=== PATIENT | female | born 1955 | race Caucasian/White ===

== ENCOUNTER → 2016-09-21 | Outpatient (CLI) | payer BC ==
[~2016-09-21] MED LIST: ALBU1AER9 INH; BIOT1CAP8 PO; CETI10TA84 PO; DEXT30TA7 PO; ESTR1DIS12 TOP; LISI20TA3 PO; SERT1TAB68 PO; SYMIN160 INH
--- NOTE | 2016-09-21 09:31 | DIAGNOSTIC IMAGING REPORT ---
ABDOMINAL ULTRASOUND, RIGHT UPPER QUADRANT HISTORY: Pain. Nausea. UNSPECIFIED DIARRHEA/ABD PAIN. COMPARISON: None. FINDINGS: Pancreas: The pancreas demonstrates a normal echotexture. Liver: Unremarkable. Gallbladder: No gallbladder wall thickening. No gallstones. CBD: 3 mm Right kidney: No hydronephrosis. IMPRESSION: No significant abnormality identified within the within the right upper quadrant. Electronically signed by: Dov Morgan M.D. 09/21/2016 9:29 AM Dictated Date/Time: 09/21/2016 9:28 AM
== END | disposition home or self-care (01) ==
LOC: C.ULTR 09:01
PROVIDERS: ATTEND Family Medicine
DX: R19.7 Diarrhea, unspecified (principal); R10.9 Unspecified abdominal pain

== ENCOUNTER → 2016-10-18 | Outpatient (CLI) | payer BC ==
[~2016-10-18] MED LIST changes: +SINCALIDE INJ 1.4 MCG in SODIUM CHLORIDE 0.9% 100ML 100 ML IV ONE
--- NOTE | 2016-10-18 10:33 | DIAGNOSTIC IMAGING REPORT ---
NUCLEAR MEDICINE HEPATOBILIARY SCAN WITH EJECTION FRACTION HISTORY: EPIGASTRIC PAIN COMPARISON: Abdominal ultrasound 09/21/2016. TECHNIQUE: Immediately following the intravenous administration of 5.2 mCi Tc-99m Choletec, dynamic anterior abdominal imaging pre/post 1.4 mcg of Kinevac was performed. FINDINGS: Uniform hepatic tracer accumulation is shown. Prompt intrahepatic biliary excretion is seen. The gallbladder, common bile duct, and small bowel are all visualized by 43 minutes. This appearance represents the normal sequence of biliary excretion. The gall bladder ejection fraction following administration of Kinevac was 50% (normal >35%). IMPRESSION: 1. No evidence for cystic duct obstruction. 2. Gallbladder ejection fraction calculated to be 50 %. Electronically signed by: Hari Rudd M.D. 10/18/2016 10:31 AM Dictated Date/Time: 10/18/2016 10:31 AM
== END | disposition home or self-care (01) ==
LOC: C.NUCL 07:40
PROVIDERS: ATTEND Family Medicine
DX: R10.13 Epigastric pain (principal)

== ENCOUNTER → 2016-10-24 | Outpatient (CLI) | payer BC ==
[~2016-10-24] MED LIST changes: -SINCALIDE INJ 1.4 MCG in SODIUM CHLORIDE 0.9% 100ML 100 ML IV ONE
--- NOTE | 2016-10-24 12:36 | DIAGNOSTIC IMAGING REPORT ---
NUCLEAR GASTRIC EMPTYING STUDY HISTORY: Epigastric pain COMPARISON: None. TECHNIQUE: Following the oral administration of 1 mCi of technetium 99m sulfur colloid in egg sandwich and 8 ounces of water, static abdominal images are obtained anteriorly and posteriorly at 0 minutes, 1 hour, 2 hour, and 4 hour time intervals. Gastric emptying was calculated utilizing the geometric mean method. FINDINGS: There is approximately 63% activity remaining at the 1 hour time interval (normal is less than 90%), 35% remaining at the 2 hour time interval (normal is less than 60%), and 38% activity remaining at the 4 hour time interval (normal is less than 10%). IMPRESSION: Delayed gastric emptying at the 4 hour time interval as described above. Electronically signed by: Hari Rudd M.D. 10/24/2016 12:35 PM Dictated Date/Time: 10/24/2016 12:34 PM
== END | disposition home or self-care (01) ==
LOC: C.NUCL 07:52
PROVIDERS: ATTEND Family Medicine
DX: R10.13 Epigastric pain (principal)

== ENCOUNTER → 2016-10-30 | Day surgery (SDC) | payer BC ==
[2016-10-10 07:52] VITALS: Ht 166.4 cm; Wt 71.8 kg
[~2016-10-30] VITALS: Ht 166.4 cm; Wt 71.8 kg
[~2016-10-30] MED LIST changes: +500ML BSS 0.3ML EPI 1:1000PF IRRIG ONE; +ACETAMINOPHEN 325 MG TAB PO PRN; +AMVISC PLAIN 0.8ML SYRINGE INT OCU ONE; +AMVISC PLUS 0.8ML SYRINGE INT OCU ONE; +ATROPINE SULFATE 0.1 MG/ML 5ML SYR IV PRN; +BSS FLUSH ONE; +EpHEDrine SULFATE INJ 50 MG/ML AMP IV PRN; +EpINEphrine INJ 1MG/ML AMP 1 MG/ML AMP ONE; +LACTATED RINGER'S 1000ML 500 ML IV SCH; +LIDOCAINE 3.5% OPH GEL PER APPLICATION CHARGE ONE; +LIDOCAINE HCL 1% MPF 2 ML VIAL ONE; +MIDAZOLAM HCL 1 MG/ML 2ML VIAL ONE; +OCUCOAT 1 ML SOLN IO ONE; +POVIDONE-IODINE OP SOLN 30 ML BTL ONE; +PROPARACAINE 0.5% OP SOLN PER DROP CHARGE OPL SCH; +TOBRAMYCIN/DEXAMETHASONE OPH OINT PER APPLN CHARGE ONE
[2016-10-30] MEDS: PHENYLEPHRINE HCL 2.5% OP SOLN PER DROP CHARGE OPL SCH ×2 (11:08→11:16)
[2016-10-30] MEDS: TROPICAMIDE 1% OP SOLN PER DROP CHARGE OPL SCH ×2 (11:09→11:17)
[2016-10-30] MEDS: CYCLOPENTOLATE HCL 1% OP SOLN PER DROP CHARGE OPL SCH ×2 (11:10→11:18)
[2016-10-30] MEDS: KETOROLAC 0.5% OP SOLN PER DROP CHARGE OPL SCH ×2 (11:11→11:19)
[2016-10-30] MEDS: GATIFLOXACIN OP SOLN PER DROP CHARGE OPL SCH ×2 (11:12→11:22)
--- NOTE | 2016-10-30 11:45 | History & Physical Bridge - [place] ---
H&P Re-Evaluation Bridge Note: I have examined the patient, reviewed the History & Physical and in the interval since the performance of the History & Physical I have noted the following changes of clinical significance: Diagnosis: Left Cataract Procedure: Left Cataract Removal with Lens Implant No changes noted
--- NOTE | 2016-10-30 12:27 | Discharge Instructions-SurgCtr ---
Discharge Instructions Date of Service October 30, 2016. Visit Reason for Visit: Cataract Left Eye Discharge Discharge Diagnosis / Problem: cataract Discharge Goals Goal(s): Improve function Activity Recommendations Activity Limitations: per Instructions/Follow-up section Anesthesia . Post Anesthesia Instructions: If you have had General Anesthesia or IV Sedation: * Do not drive today. * Resume driving when surgeon permits. * Do not make important decisions or sign legal documents today. * Call surgeon for: 1. Temperature elevations greater than 101 degrees F. 2. Uncontrollable pain. 3. Excessive bleeding. 4. Persistent nausea and vomiting. 5. Medication intolerance (nausea, vomiting or rash). * For nausea and vomiting use only clear liquids such as: tea, soda, bouillon until nausea subsides, then gradually increase diet as tolerated. * If you have any concerns or questions, call your surgeon's office. If physician is unavailable and it is an emergency, call 911 or go to the nearest emergency room. . Instructions / Follow-Up Instructions / Follow-Up ACTIVITY RECOMMENDATIONS: * No strenuous lifting, jogging or running for 4 days * No swimming or yard work for 1 week. * Limited bending is permitted, such as putting on shoes. RETURN TO SCHOOL/WORK: No work until seen by physician in office. MEDICATIONS: Resume previous medications unless instructed otherwise by your surgeon. This includes eye drops for glaucoma. Zymaxid/Gatifloxacin (baig cap) - one drop every 2 hours until bedtime Nevanac/Ilevro/Prolensa/Ketorolac (harrison cap) - one drop every 4 hours until bedtime Prednisolone (white/pink cap, SHAKE WELL) - one drop every 2 hours until bedtime Starting tomorrow - all 3 drops every 4 hours until seen in the office Optive drops - as needed for discomfort SPECIAL CARE INSTRUCTIONS: * Wear eyeshield when sleeping, for four nights. * You may wear your own glasses or sunglasses while awake. * You may read or watch TV * You may shower and wash your face, but be gentle around the eye and pat dry. * Blurry vision and mild irritation are normal. * Call office if pain is more severe or vision becomes dark at . FOLLOW UP VISIT: Follow-up with Dr Law tomorrow. Diet Recommendations Home Diet: resume previous diet Procedures Procedures Performed: Left Cataract Phacoemulsification With Intraocular Lens Implant; Toric Lens Pending Studies Studies pending at discharge: no Medical Emergencies . Who to Call and When: Medical Emergencies: If at any time you feel your situation is an emergency, please call 911 immediately. . Non-Emergent Contact Non-Emergency issues call your: Bed Setter . . "Provider Documentation" section prepared by Felix Law. .
--- NOTE | 2016-10-30 12:28 | [facility] Operative Report ---
Operative Report Date of Service October 30, 2016. Operative Report 1. PREOPERATIVE DIAGNOSIS: Cataract of the left eye. 2. POSTOPERATIVE DIAGNOSIS: Same. 3. PROCEDURE: Phacoemulsification with intraocular lens implantation of the left eye. SURGEON: Dr. Felix Law. ANESTHESIA: Topical Lidocaine gel, 1% Non- Preserved intracameral Lidocaine, and monitored intravenous sedation. INDICATIONS FOR THE PROCEDURE: The patient is a 61 - year-old female with a history of cataract of the left eye causing significant visual impairment. The details of the proposed procedure were explained to the patient who asked appropriate questions and following discussion of all risks, benefits and alternatives agreed to have the procedure done. Patient had corneal astigmatism and therefore elected to have a toric lens placed. 4. OPERATION AND FINDINGS: DESCRIPTION OF PROCEDURE: After informed consent was obtained, patient was placed in an upright position and the cornea was marked at 101 degrees using the [employer] corneal marking tool. The the patient was brought to the Operating Room at the [facility]. The patient was placed in a supine position and then the left eye was prepped and draped in the usual sterile fashion for intraocular surgery. A drop of topical Lidocaine gel was placed in the operative eye. A wire lid speculum was then placed in the fornices. A corneal paracentesis was then created temporally. The Non-Preserved Lidocaine was then instilled into the anterior chamber. The anterior chamber was then pressurized with viscoelastic. A 2.0 mm clear corneal incision was then created temporally. A cystotome was inserted into the anterior chamber and used to create a tear in the anterior lens capsule. This capsular tear was then used to create a small flap and the flap was dragged in a counterclockwise direction in order to create a continuous curvilinear capsulorrhexis. Hydrodissection was accomplished with balanced salt solution. Phacoemulsification of the lens nucleus was then performed in a standard divide- and-conquer technique. The phaco time was 18 seconds with an average power of 8 %. The remaining cortical material was removed using irrigation aspiration. The capsular bag was then filled with viscoelastic. A Henry [id number] +19.0 diopters lens was then loaded into the injector and injected into the capsular bag. The lens was aligned with the previously made corneal mohr. The remaining viscoelastic was removed with the irrigation aspiration handpiece. The wound was hydrated and then checked and found to be watertight. The intraocular pressure was checked and found to be adequate. The wire lid speculum was removed and the patient's face was cleaned and dried. TobraDex ointment was placed in the inferior fornix. The patient was discharged to the Recovery Room having tolerated the procedure well. There were no complications. The patient will be seen tomorrow in the office for follow-up. I attest to the content of the Intraoperative Record and any orders documented therein. Any exceptions are noted below.
[2016-10-30 12:44] VITALS: BP 139/80; PULSE 67; O2SAT 96
--- NOTE | 2016-10-30 12:54 | Anesthesia Progress Nt - [facility] ---
Anesthesia Post Op Note Date & Time October 30, 2016 at 12:54 Vital Signs Pain Intensity: 0 Vital Signs Past 12 Hours Date Time Temp Pulse Resp B/P Pulse Ox O2 Delivery O2 Flow Rate FiO2 10/30/16 12:44 67 16 139/80 96 Room Air 10/30/16 12:29 36.6 71 12 131/84 99 Room Air 10/30/16 10:58 36.5 58 16 130/82 99 Room Air Notes Mental Status: alert / awake / arousable, participated in evaluation Pt Amnestic to Procedure: Yes Nausea / Vomiting: adequately controlled Pain: adequately controlled Airway Patency, RR, SpO2: stable & adequate BP & HR: stable & adequate Hydration State: stable & adequate Anesthetic Complications: no major complications apparent
== END | disposition home or self-care (01) ==
LOC: X.SURG 10:32
PROVIDERS: ATTEND Ophthalmology
DX: H26.9 Unspecified cataract (principal); J45.40 Moderate persistent asthma, uncomplicated; I10 Essential (primary) hypertension; R19.7 Diarrhea, unspecified; F32.9 Major depressive disorder, single episode, unspecified; J30.2 Other seasonal allergic rhinitis; M19.90 Unspecified osteoarthritis, unspecified site; K21.9 Gastro-esophageal reflux disease without esophagitis; Z82.49 Family history of ischemic heart disease and other diseases of the circulatory system; Z82.3 Family history of stroke; Z83.3 Family history of diabetes mellitus; Z90.710 Acquired absence of both cervix and uterus; Z90.89 Acquired absence of other organs

== ENCOUNTER 2016-11-09 07:51 | Day surgery (SDC) | payer BC ==
[2016-11-07 14:44] LABS: BASO ABS # 0.09 K/uL (0-0.2); COMPLETE YES; EOS % 2.7 %; HEMATOCRIT 41.2 % (37-47); IG% 0.2 %; LYMPH % 33.8 %; LYMPH ABS # 3.18 K/uL (1.2-3.4); MEAN CELL VOLUME 88.6 fL (80-100); MEAN CORPUSCULAR HEMOGLOBIN 28.8 pg (25-34); MEAN CORPUSCULAR HGB CONC 32.5 g/dl (32-36); MEAN PLATELET VOLUME 9.6 fL (7.4-10.4); MONO % 7.4 %; NEUT % 54.9 %; PLATELET COUNT 424 K/uL (130-400); RED BLOOD COUNT 4.65 M/uL (4.2-5.4); WHITE BLOOD COUNT 9.42 K/uL (4.8-10.8)
[2016-11-07 15:06] LABS: BLOOD UREA NITROGEN 12 mg/dl (7-18); BUN/CREATININE RATIO 15.8 (10-20); CARBON DIOXIDE 28 mmol/L (21-32); CHLORIDE 106 mmol/L (98-107); CREATININE 0.78 mg/dl (0.60-1.20); GLUCOSE 84 mg/dl (70-99); POTASSIUM 3.9 mmol/L (3.5-5.1); SODIUM 141 mmol/L (136-145)
[2016-11-07 15:34] VITALS: Ht 166.4 cm; Wt 70.0 kg
[~2016-11-09] VITALS: Ht 166.4 cm; Wt 70.0 kg
[~2016-11-09 07:51] MED LIST changes: -500ML BSS 0.3ML EPI 1:1000PF IRRIG ONE; -ACETAMINOPHEN 325 MG TAB PO PRN; -AMVISC PLAIN 0.8ML SYRINGE INT OCU ONE; -AMVISC PLUS 0.8ML SYRINGE INT OCU ONE; -ATROPINE SULFATE 0.1 MG/ML 5ML SYR IV PRN; -BSS FLUSH ONE; -EpHEDrine SULFATE INJ 50 MG/ML AMP IV PRN; -EpINEphrine INJ 1MG/ML AMP 1 MG/ML AMP ONE; +LACTATED RINGER'S 1000ML 1,000 ML IV SCH; -LACTATED RINGER'S 1000ML 500 ML IV SCH; -LIDOCAINE 3.5% OPH GEL PER APPLICATION CHARGE ONE; -LIDOCAINE HCL 1% MPF 2 ML VIAL ONE; -MIDAZOLAM HCL 1 MG/ML 2ML VIAL ONE; -OCUCOAT 1 ML SOLN IO ONE; -POVIDONE-IODINE OP SOLN 30 ML BTL ONE; -PROPARACAINE 0.5% OP SOLN PER DROP CHARGE OPL SCH; -TOBRAMYCIN/DEXAMETHASONE OPH OINT PER APPLN CHARGE ONE
[2016-11-09 08:14] VITALS: BP 133/79; PULSE 66; TEMP 36.6; O2SAT 97
--- NOTE | 2016-11-09 09:36 | Endo History and Physical ---
History & Physical Date of Service: Nov 09, 2016. Chief Complaint: Referring Physician: Dr Mckenzie History of Present Illness epigastric pain, submucosal gastric nodule Past Medical History Asthma, Reflux, Gynecological Problems, Depression Past Surgical History Hx Cardiac Surgery: No Hx Abdominal Surgery: Yes (SANTIAGO BSO, APPY, TUBAL LIGATION AND FATTY TISSUE TUMOR REMOVAL) Hx Post-Op Nausea and Vomiting: No Hx Cancer Surgery: No Hx Thoracic Surgery: No Hx Orthopedic: Yes (LEFT HAND ARTHROSCOPY, TRIGGER THUMB, LEFT CARPAL TUNNEL) Hx Urinary Tract Surgery: No Social History Smoking Status: Never Smoker Hx Substance Use: No Hx Alcohol Use: Yes (OCCASIONAL) Allergies Coded Allergies: BEE STING (Verified Allergy, Severe, ANAPHYLAXIS, 11/09/16) Penicillins (Verified Allergy, Severe, ANAPHYLAXIS, 11/09/16) Sulfa Antibiotics (Verified Allergy, Intermediate, HIVES AND RASH, 11/09/16) Adhesives (Verified Allergy, Unknown, blisters, 11/09/16) Mold (Blue) Cheese (Verified Allergy, Unknown, STREAKS, 11/09/16) Uncoded Allergies: MUSHROOMS (Adverse Reaction, Intermediate, nausea and vomiting, 11/09/16) Current Medications Reported Home Medications Medications Dose Route/Sig Max Daily Dose Days Date Category Biotin 1 Mg Cap 1 Cap PO HS 10/10/16 Reported Mucinex Dm (Dextromethorphan-Guaifenesin) 1 Tab Tab 1 Tab PO Q4H PRN 10/06/15 Reported Minivelle (Estradiol) 0.05 Mg/24 Hr Dis 1 Patch TOP 2XWK 10/06/15 Reported Zyrtec (Cetirizine HCl) 10 Mg Tab 10 Mg PO HS 10/06/15 Reported Prinivil (Lisinopril) 20 Mg Tab 20 Mg PO HS 10/06/15 Reported Proair Hfa (Albuterol Sulfate) 108 Mcg/ Aer 1-2 Puffs INH PRN PRN 03/30/12 Reported Symbicort 160/4.5 Inhaler (Budesonide/Formoterol Fumarate) 120 Puffs/ Aero 1 Puffs INH BID 03/30/12 Reported Zoloft (Sertraline Hcl) 100 Mg Tab 100 Mg PO QPM 03/30/12 Reported Vital Signs Weight (Kilograms): 70 Height (Feet): 5 Height (Inches): 5.5 Date Time Temp Pulse Resp B/P (MAP) Pulse Ox O2 Delivery O2 Flow Rate FiO2 11/09/16 08:14 36.6 66 18 133/79 (97) 97 Room Air Physical Exam AAOx3 Nls1s2 Lungs CTA Abd soft NT/ND + BS - CCE Assessment and Plan EUS with possible FNA
[2016-11-09] MEDS ORDERED: MIDAZOLAM HCL 1 MG/ML 2ML VIAL ONE (10:11)
[2016-11-09] MEDS ORDERED: FENTANYL CITRATE INJ 50 MCG/1 ML 2 ML VIAL ONE (10:11)
[2016-11-09] MEDS ORDERED: ONDANSETRON INJ 2 MG/ML 2 ML VIAL ONE (10:20)
[2016-11-09] MEDS ORDERED: PROPOFOL IV EMULSION 10 MG/ML 20 ML VIAL IV ONE ×2 (10:20→11:19)
[2016-11-09] MEDS ORDERED: LARYING-O-JET KIT (LTA) ONE ×2 (10:20)
[2016-11-09] MEDS ORDERED: LIDOCAINE HCL 2% 2 ML VIAL (20MG/ML) ONE (10:20)
[2016-11-09] MEDS ORDERED: DEXAMETHASONE SOD INJ 4 MG/ML VIAL ONE (10:20)
[2016-11-09] MEDS ORDERED: PHENYLEPHRINE HCL INJ 10 MG/ML VIAL ONE (10:32)
--- NOTE | 2016-11-09 11:59 | GI REPORT ---
Procedure Date: 11/09/2016 9:39 AM Procedure: Upper EUS Indications: Gastric deformity on endoscopy/Subepithelial tumor versus extrinsic compression, Epigastric abdominal pain, one year, no wt loss; not nocturnal; strong FH of pancreas CA with father, 2 uncles and cousin Medicines: General Anesthesia Complications: radial and linear EUS scopes used to perform study. The antral nodule has features consistent with a pancreatic rest including possible small ductal structure. the lesion appear to arise in layer 4 however a portion may arise from layer three. This was not well visualized with the linear scope and therefore FNA was not attempted. Multiple mucosal biopsies taken directly from the rest were obtained. Estimated Blood Loss: Estimated blood loss was minimal. Procedure: Pre-Anesthesia Assessment: - Prior to the procedure, a History and Physical was performed, and patient medications and allergies were reviewed. The patient's tolerance of previous anesthesia was also reviewed. The risks and benefits of the procedure and the sedation options and risks were discussed with the patient. All questions were answered, and informed consent was obtained. Prior Anticoagulants: The patient has taken no previous anticoagulant or antiplatelet agents. ASA Grade Assessment: II - A patient with mild systemic disease. After reviewing the risks and benefits, the patient was deemed in satisfactory condition to undergo the procedure. After obtaining informed consent, the endoscope was passed under direct vision. Throughout the procedure, the patient's blood pressure, pulse, and oxygen saturations were monitored continuously. The Endosonoscope was introduced through the mouth, and advanced to the second part of duodenum. The upper EUS was accomplished without difficulty. The patient tolerated the procedure well. Findings: Endoscopic Finding : The examined esophagus was normal. A single 15 mm submucosal papule (nodule) with no bleeding and no stigmata of recent bleeding was found on the greater curvature of the stomach. This was biopsied with a cold forceps for histology. Verification of patient identification for the specimen was done using the patient's name and medical record number. Localized mild inflammation characterized by congestion (edema) and erythema was found in the gastric antrum. Biopsies were taken with a cold forceps for histology. Biopsies were taken with a cold forceps for Helicobacter pylori testing. The examined duodenum was normal. Endosonographic Finding : The esophagus, stomach, duodenum and adjacent structures were visualized endosonographically. There was no sign of significant endosonographic abnormality in the esophagus. No pathologic lymphadenopathy was identified. An oval intramural (subepithelial) lesion was found in the antrum of the stomach. The lesion was hypoechoic and heterogenous. Sonographically, the lesion appeared to originate from the submucosa (Layer 3) and muscularis propria (Layer 4). The lesion measured 5 mm (in maximum thickness). The outer endosonographic borders were poorly defined. Endosonographic images of the stomach were unremarkable. No pathologic lymphadenopathy was identified. There was no sign of significant endosonographic abnormality in the examined duodenum. No pathologic lymphadenopathy was identified. There was no sign of significant endosonographic abnormality in the ampulla. No masses were identified. There was no sign of significant endosonographic abnormality in the common bile duct, in the common hepatic duct, in the cystic duct and in the gallbladder. The maximum diameter of the ducts were 3 mm. An unremarkable gallbladder, no pathologic lymphadenopathy and no stones were identified. There was no sign of significant endosonographic abnormality in the liver. Homogeneous parenchyma, no focal pathology and no masses were identified. There was no sign of significant endosonographic abnormality in the main pancreatic duct, in the ventral anlage of the pancreas and in the entire pancreas. The pancreatic duct measured up to 1 mm in diameter. No pathologic lymphadenopathy, no masses, no cysts, no calcifications, the pancreatic duct was thin in caliber. Radial scope in 10:08- removed 10:43 Linear scope in 10:53- removed 11:17 Impression: - Normal esophagus. - A single submucosal papule (nodule) found in the stomach. Biopsied. - Gastritis. Biopsied. - Normal examined duodenum. - There was no sign of significant pathology in the esophagus. - An intramural (subepithelial) lesion was found in the antrum of the stomach. The lesion appeared to originate from within the submucosa (Layer 3) and muscularis propria (Layer 4). - Endosonographic images of the stomach were unremarkable. - There was no sign of significant pathology in the examined duodenum. - There was no sign of significant pathology in the ampulla. - There was no sign of significant pathology in the common bile duct, in the common hepatic duct, in the cystic duct and in the gallbladder. - There was no evidence of significant pathology in the liver. - There was no sign of significant pathology in the main pancreatic duct, in the ventral anlage of the pancreas and in the entire pancreas. Recommendation: - Discharge patient to home (ambulatory). - Resume regular diet. - Continue present medications. - Await path results. - Return to referring physician as previously scheduled. - Return to GI clinic as previously schedule with Dr Mckenzie. Source of abdominal pain unclear. GB workup if not recently performed. May also consider CT scan if not recently performed. The pancreas appears normal ultrasonographic. MD Moshe Prasad MD 11/09/2016 11:59:25 AM This report has been signed electronically. Note Initiated On: 11/09/2016 9:39 AM I attest to the content of the Intraoperative Record and orders documented therein, exceptions below
--- NOTE | 2016-11-09 12:03 | Discharge Instructions ---
Endoscopy Patient Instructions Date / Procedure(s) Performed Nov 09, 2016. Other Allergy Information Coded Allergies: BEE STING (Verified Allergy, Severe, ANAPHYLAXIS, 11/09/16) Penicillins (Verified Allergy, Severe, ANAPHYLAXIS, 11/09/16) Midazolam (Unverified Allergy, Intermediate, HEADACHE, 11/09/16) Sulfa Antibiotics (Verified Allergy, Intermediate, HIVES AND RASH, 11/09/16) Adhesives (Verified Allergy, Unknown, blisters, 11/09/16) Mold (Blue) Cheese (Verified Allergy, Unknown, STREAKS, 11/09/16) Uncoded Allergies: MUSHROOMS (Adverse Reaction, Intermediate, nausea and vomiting, 11/09/16) Discharge Date / Findings Nov 09, 2016. 1) EUS c/w pancreatic rest- mucosal bx taken 2-mild gastritis- biopsied 3)- pancreas appears normal Medication Instructions Restart Stopped Medication(s): Reported Home Medications Medications Dose Route/Sig Max Daily Dose Days Date Category Biotin 1 Mg Cap 1 Cap PO HS 10/10/16 Reported Mucinex Dm (Dextromethorphan-Guaifenesin) 1 Tab Tab 1 Tab PO Q4H PRN 10/06/15 Reported Minivelle (Estradiol) 0.05 Mg/24 Hr Dis 1 Patch TOP 2XWK 10/06/15 Reported Zyrtec (Cetirizine HCl) 10 Mg Tab 10 Mg PO HS 10/06/15 Reported Prinivil (Lisinopril) 20 Mg Tab 20 Mg PO HS 10/06/15 Reported Proair Hfa (Albuterol Sulfate) 108 Mcg/ Aer 1-2 Puffs INH PRN PRN 03/30/12 Reported Symbicort 160/4.5 Inhaler (Budesonide/Formoterol Fumarate) 120 Puffs/ Aero 1 Puffs INH BID 03/30/12 Reported Zoloft (Sertraline Hcl) 100 Mg Tab 100 Mg PO QPM 03/30/12 Reported Reported Home Medications Medications Dose Route/Sig Max Daily Dose Days Date Category Biotin 1 Mg Cap 1 Cap PO HS 10/10/16 Reported Mucinex Dm (Dextromethorphan-Guaifenesin) 1 Tab Tab 1 Tab PO Q4H PRN 10/06/15 Reported Minivelle (Estradiol) 0.05 Mg/24 Hr Dis 1 Patch TOP 2XWK 10/06/15 Reported Zyrtec (Cetirizine HCl) 10 Mg Tab 10 Mg PO HS 10/06/15 Reported Prinivil (Lisinopril) 20 Mg Tab 20 Mg PO HS 10/06/15 Reported Proair Hfa (Albuterol Sulfate) 108 Mcg/ Aer 1-2 Puffs INH PRN PRN 03/30/12 Reported Symbicort 160/4.5 Inhaler (Budesonide/Formoterol Fumarate) 120 Puffs/ Aero 1 Puffs INH BID 03/30/12 Reported Zoloft (Sertraline Hcl) 100 Mg Tab 100 Mg PO QPM 03/30/12 Reported Provider Instructions Activity Restrictions - No exercising or heavy lifting for 24 hours. - Do not drink alcohol the day of the procedure. - Do not drive a car or operate machinery until the day after the procedure. - Do not make any important decisions or sign important papers in 24 hours after the procedure. Following Day: - Return to full activity which may include returning to work/school. Diet Start your diet with liquids and light foods (jello, soup, juice, toast). Then eat your usual diet if not nauseated. Treatment For Common After Affects For mild abdominal pain, bloating, or excessive gas: - Rest - Eat lightly - Lie on right side Follow-Up Information Follow-up with as scheduled Anesthesia Information What You Should Know You have had a procedure that required some medicine to reduce anxiety and discomfort. This treatment is called moderate sedation. After receiving the treatment, you may be sleepy, but you will be able to breathe on your own. The effects of the treatment may last for several hours. Follow these instructions along with Activity/Diet recommendations noted above: * Do NOT do anything where dizziness or clumsiness would be dangerous. * Rest quietly at home today, then you can be up and about tomorrow. * Have a responsible person stay with you the rest of today. * You may have had an I.V. today. If so, you may take the dressing off later today. Recommendations Call your doctor if: * Trouble breathing * Continuous vomiting for more than 24 hours * Temperature above 101 degrees * Severe abdominal pain or bloating * Pain not relieved by pain medicine ordered * There is increased drainage or redness from any incision * A large amount of rectal bleeding greater than 2-3 tablespoons. (If you had a polyp/s removed or have hemorrhoids, a small amount of blood - from the rectum is to be expected.) * You have any unanswered questions or concerns. IN THE EVENT OF A SERIOUS EMERGENCY, GO TO THE NEAREST EMERGENCY ROOM Your discharge instructions were prepared by provider Moshe Melgar. Patient Instructions Signature Page Elena Larsen Patient (or Guardian) Signature/Date: I have read and understand the instructions given to me by my caregivers. Caregiver/RN/Doctor Signature/Date: The above-named patient and/or guardian has received patient instructions on this date. + Original Patient Signature Page (only) stays with chart. Please make copy for patient.
--- NOTE | 2016-11-09 12:36 | Anesthesiology Progress Note ---
Anesthesia Post Op Note Date & Time Nov 09, 2016 at 12:36 Vital Signs Pain Intensity: 0 Vital Signs Past 12 Hours Date Time Temp Pulse Resp B/P (MAP) Pulse Ox O2 Delivery O2 Flow Rate FiO2 11/09/16 12:32 127/76 11/09/16 12:29 83 15 93 11/09/16 12:29 83 15 11/09/16 12:27 123/72 11/09/16 12:24 80 17 93 11/09/16 12:24 80 17 11/09/16 12:22 132/77 11/09/16 12:19 79 13 11/09/16 12:19 79 13 94 11/09/16 12:17 120/74 11/09/16 12:14 87 17 11/09/16 12:14 87 17 93 11/09/16 12:13 89 20 93 11/09/16 12:13 89 20 11/09/16 12:12 115/82 11/09/16 12:08 83 14 11/09/16 12:08 83 14 95 11/09/16 12:07 138/80 11/09/16 12:03 85 14 11/09/16 12:03 84 14 95 11/09/16 12:02 36.8 11/09/16 12:00 86 16 95 11/09/16 12:00 86 14 11/09/16 11:58 127/67 11/09/16 11:55 87 14 94 11/09/16 11:55 88 14 11/09/16 11:53 127/66 11/09/16 11:50 94 21 96 11/09/16 11:50 95 21 11/09/16 11:47 142/113 11/09/16 11:45 92 15 100 11/09/16 11:45 93 15 11/09/16 11:42 123/75 11/09/16 11:40 Room Air 11/09/16 11:40 96 10 11/09/16 11:40 95 10 100 11/09/16 11:39 122/76 11/09/16 11:30 36.8 99 16 127/76 100 Mask 10 11/09/16 08:14 36.6 66 18 133/79 (97) 97 Room Air Notes Mental Status: alert / awake / arousable, participated in evaluation Pt Amnestic to Procedure: Yes Nausea / Vomiting: adequately controlled Pain: adequately controlled Airway Patency, RR, SpO2: stable & adequate BP & HR: stable & adequate Hydration State: stable & adequate Anesthetic Complications: no major complications apparent
[2016-11-09 12:38] VITALS: BP 121/67; PULSE 86; TEMP 37.4; O2SAT 96
[2016-11-09] MEDS ORDERED: EpHEDrine SULFATE INJ 50 MG/ML AMP IV PRN (12:45)
[2016-11-09] MEDS ORDERED: ATROPINE SULFATE 0.1 MG/ML 5ML SYR IV PRN (12:45)
[2016-11-09 13:10] VITALS: BP 124/70; PULSE 78; O2SAT 96
[2016-11-09 13:45] VITALS: BP 126/69; PULSE 85; TEMP 36.8; O2SAT 95
== END 2016-11-09 13:59 | disposition home or self-care (01) ==
LOC: C.ACU 07:51
PROVIDERS: ATTEND Internal Medicine Gastroenterology
DX: R10.13 Epigastric pain (principal); K31.89 Other diseases of stomach and duodenum; K29.71 Gastritis, unspecified, with bleeding; F32.9 Major depressive disorder, single episode, unspecified; J45.909 Unspecified asthma, uncomplicated

== ENCOUNTER → 2016-11-20 | Day surgery (SDC) | payer BC ==
[2016-11-07 16:03] VITALS: Ht 166.4 cm; Wt 70.0 kg
[~2016-11-20] VITALS: Ht 166.4 cm; Wt 70.0 kg
[~2016-11-20] MED LIST changes: +500ML BSS 0.3ML EPI 1:1000PF IRRIG ONE; +ACETAMINOPHEN 325 MG TAB PO PRN; +AMVISC PLUS 0.8ML SYRINGE INT OCU ONE; +ATROPINE SULFATE 0.1 MG/ML 5ML SYR IV PRN; +BSS FLUSH ONE; +EpHEDrine SULFATE INJ 50 MG/ML AMP IV PRN; +EpINEphrine INJ 1MG/ML AMP 1 MG/ML AMP ONE; +FENTANYL CITRATE INJ 50 MCG/1 ML 2 ML VIAL IV PRN; +FLUMAZENIL 0.1 MG/1 ML 10 ML VIAL IV PRN; +HYDROmorphone INJ 2 MG/ML SYR/VIAL IV PRN; +LABETALOL HCL IV 5 MG/ML 20ML IV PRN; -LACTATED RINGER'S 1000ML 1,000 ML IV SCH; +LACTATED RINGER'S 1000ML 500 ML IV SCH; +LIDOCAINE 3.5% OPH GEL PER APPLICATION CHARGE ONE; +LIDOCAINE HCL 1% MPF 2 ML VIAL ONE; +MEPERIDINE HCL 25 MG/ML CARP IV PRN; +MIDAZOLAM HCL 1 MG/ML 2ML VIAL ONE; +NALOXONE HCL 0.4 MG/1 ML VIAL/CARP IV PRN; +OCUCOAT 1 ML SOLN IO ONE; +ONDANSETRON INJ 2 MG/ML 2 ML VIAL IV PRN; +PHENYLEPHRINE 100MCG/ML 5ML SYR IV PRN; +POVIDONE-IODINE OP SOLN 30 ML BTL ONE; +PROPARACAINE 0.5% OP SOLN PER DROP CHARGE OPR SCH; +TOBRAMYCIN/DEXAMETHASONE OPH OINT PER APPLN CHARGE ONE
[2016-11-20] MEDS: PHENYLEPHRINE HCL 2.5% OP SOLN PER DROP CHARGE OPR SCH ×2 (06:36→06:42)
[2016-11-20] MEDS: TROPICAMIDE 1% OP SOLN PER DROP CHARGE OPR SCH ×2 (06:37→06:42)
[2016-11-20] MEDS: CYCLOPENTOLATE HCL 1% OP SOLN PER DROP CHARGE OPR SCH ×2 (06:38→06:43)
[2016-11-20] MEDS: KETOROLAC 0.5% OP SOLN PER DROP CHARGE OPR SCH ×2 (06:39→06:44)
[2016-11-20] MEDS: GATIFLOXACIN OP SOLN PER DROP CHARGE OPR SCH ×2 (06:40→06:50)
--- NOTE | 2016-11-20 07:00 | History & Physical Bridge - [place] ---
H&P Re-Evaluation Bridge Note: I have examined the patient, reviewed the History & Physical and in the interval since the performance of the History & Physical I have noted the following changes of clinical significance: Diagnosis: Right Cataract Procedure: Right Cataract Removal with Lens Implant No changes noted
--- NOTE | 2016-11-20 07:26 | Discharge Instructions-SurgCtr ---
Discharge Instructions Date of Service Nov 20, 2016. Visit Reason for Visit: Right Cataract Discharge Discharge Diagnosis / Problem: cataract Discharge Goals Goal(s): Improve function Activity Recommendations Activity Limitations: per Instructions/Follow-up section Anesthesia . Post Anesthesia Instructions: If you have had General Anesthesia or IV Sedation: * Do not drive today. * Resume driving when surgeon permits. * Do not make important decisions or sign legal documents today. * Call surgeon for: 1. Temperature elevations greater than 101 degrees F. 2. Uncontrollable pain. 3. Excessive bleeding. 4. Persistent nausea and vomiting. 5. Medication intolerance (nausea, vomiting or rash). * For nausea and vomiting use only clear liquids such as: tea, soda, bouillon until nausea subsides, then gradually increase diet as tolerated. * If you have any concerns or questions, call your surgeon's office. If physician is unavailable and it is an emergency, call 911 or go to the nearest emergency room. . Instructions / Follow-Up Instructions / Follow-Up ACTIVITY RECOMMENDATIONS: * No strenuous lifting, jogging or running for 4 days * No swimming or yard work for 1 week. * Limited bending is permitted, such as putting on shoes. RETURN TO SCHOOL/WORK: No work until seen by physician in office. MEDICATIONS: Resume previous medications unless instructed otherwise by your surgeon. This includes eye drops for glaucoma. Zymaxid/Gatifloxacin (baig cap) - one drop every 2 hours until bedtime Nevanac/Ilevro/Prolensa/Ketorolac (harrison cap) - one drop every 4 hours until bedtime Prednisolone (white/pink cap, SHAKE WELL) - one drop every 2 hours until bedtime Starting tomorrow - all 3 drops every 4 hours until seen in the office Optive drops - as needed for discomfort SPECIAL CARE INSTRUCTIONS: * Wear eyeshield when sleeping, for four nights. * You may wear your own glasses or sunglasses while awake. * You may read or watch TV * You may shower and wash your face, but be gentle around the eye and pat dry. * Blurry vision and mild irritation are normal. * Call office if pain is more severe or vision becomes dark at . FOLLOW UP VISIT: Follow-up with Dr Law tomorrow. Diet Recommendations Home Diet: resume previous diet Procedures Procedures Performed: Right Cataract Phacoemulsification With Intraocular Lens Implant Pending Studies Studies pending at discharge: no Medical Emergencies . Who to Call and When: Medical Emergencies: If at any time you feel your situation is an emergency, please call 911 immediately. . Non-Emergent Contact Non-Emergency issues call your: Public Employment Mediator . . "Provider Documentation" section prepared by Felix Law. .
[2016-11-20 07:27] VITALS: TEMP 36.5
--- NOTE | 2016-11-20 07:27 | [facility] Operative Report ---
Operative Report Date of Service Nov 20, 2016. Operative Report 1. PREOPERATIVE DIAGNOSIS: Cataract of the right eye. 2. POSTOPERATIVE DIAGNOSIS: Same. 3. PROCEDURE: Phacoemulsification with intraocular lens implantation of the right eye. SURGEON: Dr. Felix Law. ANESTHESIA: Topical Lidocaine gel, 1% Non- Preserved intracameral Lidocaine, and monitored intravenous sedation. INDICATIONS FOR THE PROCEDURE: The patient is a 61 - year-old female with a history of cataract of the right eye causing significant visual impairment. The details of the proposed procedure were explained to the patient who asked appropriate questions and following discussion of all risks, benefits and alternatives agreed to have the procedure done. 4. OPERATION AND FINDINGS: DESCRIPTION OF PROCEDURE: After informed consent was obtained, the patient was brought to the Operating Room at the [facility]. The patient was placed in a supine position and then the right eye was prepped and draped in the usual sterile fashion for intraocular surgery. A drop of topical Lidocaine gel was placed in the operative eye. A wire lid speculum was then placed in the fornices. A corneal paracentesis was then created temporally. The Non-Preserved Lidocaine was then instilled into the anterior chamber. The anterior chamber was then pressurized with viscoelastic. A 2.0 mm clear corneal incision was then created temporally. A cystotome was inserted into the anterior chamber and used to create a tear in the anterior lens capsule. This capsular tear was then used to create a small flap and the flap was dragged in a counterclockwise direction in order to create a continuous curvilinear capsulorrhexis. Hydrodissection was accomplished with balanced salt solution. Phacoemulsification of the lens nucleus was then performed in a standard [id number]-[id number] technique. The phaco time was 18 seconds with an average power of 8 %. The remaining cortical material was removed using irrigation aspiration. The capsular bag was then filled with viscoelastic. A Henry [id number] +17.0 diopters lens was then loaded into the injector and injected into the capsular bag. The remaining viscoelastic was removed with the irrigation aspiration handpiece. The wound was hydrated and then checked and found to be watertight. The intraocular pressure was checked and found to be adequate. The wire lid speculum was removed and the patient's face was cleaned and dried. TobraDex ointment was placed in the inferior fornix. The patient was discharged to the Recovery Room having tolerated the procedure well. There were no complications. The patient will be seen tomorrow in the office for follow-up. I attest to the content of the Intraoperative Record and any orders documented therein. Any exceptions are noted below.
--- NOTE | 2016-11-20 07:40 | Anesthesia Progress Nt - [facility] ---
Anesthesia Post Op Note Date & Time Nov 20, 2016 at 07:40 Vital Signs Pain Intensity: 0 Vital Signs Past 12 Hours Date Time Temp Pulse Resp B/P (MAP) Pulse Ox O2 Delivery O2 Flow Rate FiO2 11/20/16 07:27 36.5 71 16 124/81 (95) 97 Room Air 11/20/16 06:26 37.1 73 16 122/81 (95) 96 Room Air Notes Mental Status: alert / awake / arousable, participated in evaluation Pt Amnestic to Procedure: Yes Nausea / Vomiting: adequately controlled Pain: adequately controlled Airway Patency, RR, SpO2: stable & adequate BP & HR: stable & adequate Hydration State: stable & adequate Anesthetic Complications: no major complications apparent
[2016-11-20 07:55] VITALS: BP 130/77; PULSE 63; O2SAT 97
== END | disposition home or self-care (01) ==
LOC: X.SURG 06:14
PROVIDERS: ATTEND Ophthalmology
DX: H26.9 Unspecified cataract (principal); I10 Essential (primary) hypertension; J45.909 Unspecified asthma, uncomplicated; M19.90 Unspecified osteoarthritis, unspecified site; Z68.25 Body mass index [BMI] 25.0-25.9, adult; Z88.0 Allergy status to penicillin; Z88.2 Allergy status to sulfonamides; Z98.890 Other specified postprocedural states

== ENCOUNTER → 2017-02-04 | Outpatient (CLI) | payer BC ==
[~2017-02-04] MED LIST changes: -500ML BSS 0.3ML EPI 1:1000PF IRRIG ONE; -ACETAMINOPHEN 325 MG TAB PO PRN; -AMVISC PLUS 0.8ML SYRINGE INT OCU ONE; -ATROPINE SULFATE 0.1 MG/ML 5ML SYR IV PRN; -BSS FLUSH ONE; -EpHEDrine SULFATE INJ 50 MG/ML AMP IV PRN; -EpINEphrine INJ 1MG/ML AMP 1 MG/ML AMP ONE; -FENTANYL CITRATE INJ 50 MCG/1 ML 2 ML VIAL IV PRN; -FLUMAZENIL 0.1 MG/1 ML 10 ML VIAL IV PRN; -HYDROmorphone INJ 2 MG/ML SYR/VIAL IV PRN; -LABETALOL HCL IV 5 MG/ML 20ML IV PRN; -LACTATED RINGER'S 1000ML 500 ML IV SCH; -LIDOCAINE 3.5% OPH GEL PER APPLICATION CHARGE ONE; -LIDOCAINE HCL 1% MPF 2 ML VIAL ONE; -MEPERIDINE HCL 25 MG/ML CARP IV PRN; -MIDAZOLAM HCL 1 MG/ML 2ML VIAL ONE; -NALOXONE HCL 0.4 MG/1 ML VIAL/CARP IV PRN; -OCUCOAT 1 ML SOLN IO ONE; -ONDANSETRON INJ 2 MG/ML 2 ML VIAL IV PRN; -PHENYLEPHRINE 100MCG/ML 5ML SYR IV PRN; -POVIDONE-IODINE OP SOLN 30 ML BTL ONE; -PROPARACAINE 0.5% OP SOLN PER DROP CHARGE OPR SCH; -TOBRAMYCIN/DEXAMETHASONE OPH OINT PER APPLN CHARGE ONE
--- NOTE | 2017-02-04 15:35 | MAMMOGRAPHY REPORT ---
BILATERAL DIGITAL SCREENING MAMMOGRAM WITH CAD: 02/04/2017 CLINICAL HISTORY: Routine screening. Patient has no complaints. TECHNIQUE: Bilateral CC and MLO views of the breasts with and without implant displacement views were obtained. Current study was also evaluated with a Computer Aided Detection (CAD) system. COMPARISON: Comparison is made to exams dated: 03/14/2015 mammogram, 01/26/2015 mammogram, 12/29/2014 m ammogram, 03/09/2014 mammogram - [facility], and 05/16/2010 mammogram. BREAST COMPOSITION: There are scattered areas of fibroglandular density in both breasts. FINDINGS: Bilateral subpectoral silicone implants are stable compared to prior mammograms. There is a stable intramammary lymph node in the right upper outer quadrant. A benign rim calcification in th e right breast. No new suspicious mass, architectural distortion or cluster of microcalcifications i s seen. IMPRESSION: ACR BI-RADS CATEGORY 1: NEGATIVE There is no mammographic evidence of malignancy. A 1 year screening mammogram is recommended. The pa tient will receive written notification of the results. Approximately 10% of breast cancers are not detected with mammography. A negative mammographic report should not delay biopsy if a clinically suggestive mass is present. Neli Park M.D. ay/:02/04/2017 15:15:39 School Bus Operator: Anisha GAMBLE(Jose)(Garima)([place]), [facility] letter sent: Normal 1/2 BI-RADS Code: ACR BI-RADS Category 1: Negative
== END | disposition home or self-care (01) ==
LOC: C.MAMM 14:26
PROVIDERS: ATTEND Obstetrics & Gynecology
DX: Z12.31 Encounter for screening mammogram for malignant neoplasm of breast (principal)

== ENCOUNTER 2021-01-08 10:36 | Inpatient (IN) ==
[2021-01-08] MEDS ORDERED: ACETAMINOPHEN 500 MG TAB PO STA (11:17)
[2021-01-08] MEDS ORDERED: ONDANSETRON INJ 2 MG/ML 2 ML VIAL IV STA (11:17)
[2021-01-08] MEDS ORDERED: KETOROLAC TROMETHAMINE 15 MG/ML VIAL IV STA (11:17)
[2021-01-08 11:22] LABS: Basophils # (auto) 0.01 K/uL (0-0.2); Basophils % (auto) 0.1 %; Hematocrit (blood only) 35.6 % (37-47); Hemoglobin 12.3 g/dL (12.0-16.0); Immature Granulocytes # (auto) 0.02 K/uL (0.00-0.02); Immature Granulocytes % (auto) 0.1 %; Lymphocytes # (auto) 0.56 K/uL (1.2-3.4); Lymphocytes % (auto) 3.9 %; Mean Corpuscular Hemoglobin 30.3 pg (25-34); Mean Corpuscular Hgb Conc 34.6 g/dL (32-36); Mean Corpuscular Volume 87.7 fL (80-100); Mean Platelet Volume 9.3 fL (7.4-10.4); Monocytes % (auto) 2.8 %; Neutrophils # (auto) 13.23 K/uL (1.4-6.5); Neutrophils % (auto) 93.1 %; Platelet Count 265 K/uL (130-400); RDW Coefficient of Variation 13.3 % (11.5-14.5); Red Blood Count 4.06 M/uL (4.2-5.4); White Blood Count 14.22 K/uL (4.8-10.8)
--- NOTE | 2021-01-08 11:23 | Emergency Department Note ---
Impression & Plan Pneumonia, Flu-like symptoms, Acute dehydration, Acute hyponatremia ED Provider Note NAME: DANE COWAN AGE: 65 SEX: F : 1955 ARRIVES VIA: Walk-In INFORMANT: [Patient] ED PROVIDER(S): [Je Gorman MD] CHIEF COMPLAINT: Illness HISTORY OF PRESENT ILLNESS: The patient is a 65-year-old female presents with about 4 days of symptoms. She has had severe facial pain bilaterally. She feels that she is congested and may have a sinus infection. Her ears have drained some fluid. Her teeth hurt. She has felt lightheaded, hot and cold, nauseated. She has vomited. She felt chills and a fever. She has had sweats. Recently, she has noticed some increased cough and some mild to moderate central chest discomfort. She feels mildly short of breath. The patient has had Covid and she is vaccinated against COVID-19. She denies any tick bites. The patient denies urinary complaints. She admits to some loose stool but no diarrhea. There is no abdominal pain. REVIEW OF SYSTEMS: See HPI for pertinent positives and negatives. A total of ten systems were reviewed and were otherwise negative. PMHx/PSHx: See Below SOCIAL HISTORY: See Below. PHYSICAL EXAM: GENERAL: Patient is in no acute distress. HEENT: No acute trauma, normocephalic atraumatic, mucous membranes moist, no nasal congestion, no scleral icterus. No throat erythema or exudate. NECK: No stridor, no adenopathy, no meningismus, trachea is midline. LUNGS: Clear to auscultation bilaterally, no wheeze, no rhonchi, breath sounds equal. HEART: Mildly tachycardic, regular rhythm, no murmurs. ABDOMEN: Soft, nontender, bowel sounds positive, no hernias, no peritonitis. EXTREMITIES: No cyanosis or edema, full range of motion of all the joints without pain or difficulty, no signs for acute trauma. NEUROLOGIC: Oriented x 3, no acute motor or sensory deficits, no focal weakness. SKIN: No rash, no jaundice, no diaphoresis. DIFFERENTIAL DIAGNOSIS: Sepsis, UTI, pneumonia, metabolic abnormality, electrolyte abnormalities, cardiac sources, COVID-19, anaplasmosis, Lyme disease, cellulitis, UTI, bacteremia, intracerebral event, toxicologic etiology, neurologic event, as well as other pathologies. EMERGENCY DEPARTMENT COURSE/PROCEDURES: ECG: Indication was chest pain. The ECG shows a normal sinus rhythm with a rate of 97. There is some very subtle ST depression in the lateral leads. There is no ST elevation, no PVCs. The QTc is 416. Compared to an ECG from 07 Nov 2016, the rate has increased, the ST changes appear similar. Continuous Cardiac Monitoring: An order was placed for continuous cardiac monitoring. The monitor shows a rate of 100 with normal sinus rhythm. MEDICAL DECISION MAKING: There is a moderate leukocytosis which would be consistent with infection. No anemia. There is a normal platelet count. Sodium was low at 129. No kidney failure. Lactic acid level was not elevated making severe sepsis less likely. Magnesium was low at 1.7. No worrisome liver enzyme elevation. The patient appeared to be in a euthyroid state. ECG showed a sinus rhythm, no acute ischemia. Cardiac enzyme testing x1 is not consistent with acute cardiac injur y. Urinalysis showed some dehydration and contamination. Lyme disease testing returned negative. Anaplasmosis testing is pending. Covid testing returned negative. Chest film does show a bilateral lower lung pneumonia. The patient presents with flulike symptoms. She appears to have pneumonia by work-up. She is dehydrated, she has been vomiting, she is hyponatremic. She has a low magnesium. Given her findings and her history, I do think a hospital stay is warranted. Patient was given IV saline for hydration. She received IV Zofran and IV magnesium. She was given oral magnesium. She received IV Toradol, IV clindamycin and oral doxycycline. She received oral Tylenol. I did speak with the patient and case therapist. The on-call hospitalist has been consulted. Patient is currently resting comfortably. 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 Beliefs That Will Affect Care: None Current Living Situation: Alone Feels Safe at Home: Yes Safety Concerns: Feels Safe At This Time Assistive Devices: None Allergies Allergies Allergy/AdvReac Type Severity Reaction Status Date / Time bee venom protein (honey bee) Allergy Severe ANAPHYLAXIS Verified 01/08/21 13:15 Penicillins Allergy Severe ANAPHYLAXIS Verified 01/08/21 13:15 midazolam Allergy Intermediate HEADACHE Unverified 01/08/21 13:15 Sulfa (Sulfonamide Allergy Intermediate HIVES AND Verified 01/08/21 13:15 Antibiotics) RASH adhesive Allergy Unknown blisters Verified 01/08/21 13:15 cheese Allergy Unknown STREAKS Verified 01/08/21 13:15 MUSHROOMS AdvReac Intermediate nausea and Uncoded 01/08/21 13:15 vomiting Home Meds Home Medications Medication Instructions Recorded Confirmed albuterol sulfate 90 mcg/actuation 1 - 2 puff INHALATION Q4H PRN #0 03/30/12 01/08/21 aerosol inhaler (ProAir HFA) sertraline 100 mg tablet 100 mg PO BID #0 tab 03/30/12 01/08/21 cetirizine 10 mg tablet (Zyrtec) 10 mg PO PM #0 tab 10/06/15 01/08/21 lisinopril 20 mg tablet 20 mg PO HS #0 tab 10/06/15 01/08/21 acetaminophen 500 mg capsule 1,000 mg PO Q6H PRN 01/08/21 01/08/21 biotin 5,000 mcg sublingual tablet 5,000 mcg SUBLINGUAL HS 01/08/21 01/08/21 buspirone 5 mg tablet 5 - 10 mg PO AMPM 01/08/21 01/08/21 cholecalciferol (vitamin D3) 25 25 mcg PO QAM 01/08/21 01/08/21 mcg (1,000 unit) tablet (Vitamin D3) Results & Data (ED) Vital Signs Vital Signs - 24 hr 01/08/21 10:45 01/08/21 11:10 01/08/21 12:00 Temperature 37.2 C Temperature Source Temporal Artery Scan Pulse Rate 107 H Pulse Rate [Apical] 100 H Pulse Rate from SpO2 Sensor Pulse Rhythm [Apical] Regular Respiratory Rate 18 16 Respiratory Effort / Characteristics Non-Labored Spontaneous Non-Labored Respiratory Depth Normal Normal Respiratory Pattern Regular Blood Pressure 149/88 H Blood Pressure [Right Arm] 115/89 Blood Pressure Mean 108 Blood Pressure Mean [Right Arm] 97 Blood Pressure Position Sitting Pulse Oximetry 96 97 95 Oxygen Delivery Method Room Air Room Air Room Air Sepsis Recent Fever Within 48 Hours No Sepsis New/Unexplained Change in Mental Status N/A Sepsis Action Taken by Nursing No Action Required 01/08/21 13:00 01/08/21 13:30 Temperature Temperature Source Pulse Rate 82 84 Pulse Rate [Apical] 86 Pulse Rate from SpO2 Sensor 82 82 Pulse Rhythm [Apical] Regular Respiratory Rate 14 16 Respiratory Effort / Characteristics Non-Labored Respiratory Depth Normal Respiratory Pattern Blood Pressure 120/76 125/70 Blood Pressure [Right Arm] 120/76 Blood Pressure Mean 90 88 Blood Pressure Mean [Right Arm] 90 Blood Pressure Position Pulse Oximetry 95 95 Oxygen Delivery Method Room Air Sepsis Recent Fever Within 48 Hours Sepsis New/Unexplained Change in Mental Status Sepsis Action Taken by [facility] Medications Current Medication List: was personally reviewed by me Laboratory Data Attestation: I reviewed the patient's lab results. Result diagrams: 01/08/21 11:12 01/08/21 11:12 Lab Results 01/08/21 01/08/21 01/08/21 Range/Units 11:12 11:12 11:12 WBC 14.22 H (4.8-10.8) K/uL RBC 4.06 L (4.2-5.4) M/uL Hgb 12.3 (12.0-16.0) g/dL Hct 35.6 L (37-47) % MCV 87.7 (80-100) fL MCH 30.3 (25-34) pg MCHC 34.6 (32-36) g/dL RDW Std Deviation 43.0 (36.4-46.3) fL RDW Coeff of Ori 13.3 (11.5-14.5) % Plt Count 265 (130-400) K/uL MPV 9.3 (7.4-10.4) fL Immature Gran % (Auto) 0.1 % Neut % (Auto) 93.1 % Lymph % (Auto) 3.9 % [place] % (Auto) 2.8 % Eos % (Auto) 0.0 % Baso % (Auto) 0.1 % Neut # (Auto) 13.23 H (1.4-6.5) K/uL Lymph # (Auto) 0.56 L (1.2-3.4) K/uL [place] # (Auto) 0.40 (0.11-0.59) K/uL Eos # (Auto) 0.00 (0-0.5) K/uL Baso # (Auto) 0.01 (0-0.2) K/uL Immature Gran # (Auto) 0.02 (0.00-0.02) K/uL Sodium 129 L (136-145) mmol/L Potassium 3.7 (3.5-5.1) mmol/L Chloride 99 (98-107) mmol/L Carbon Dioxide 23 (21-32) mmol/L Anion Gap 8.0 (3-11) BUN 10 (7-18) mg/dl Creatinine 0.79 (0.6-1.2) mg/dl Est Cr Clr Drug Dosing 63.9 ml/min Est GFR ( Amer) 91.0 ml/min Est GFR (Non-Af Amer) 78.6 ml/min BUN/Creatinine Ratio 12.5 (10-20) Glucose 130 H (70-99) mg/dl Osmolality (280-300) mOsm/kg Lactate (0.4-2.0) mmol/L Calcium 8.7 (8.5-10.1) mg/dl Magnesium 1.7 L (1.8-2.4) mg/dl Total Bilirubin 0.4 (0.2-1) mg/dl AST 37 (15-37) U/L ALT 37 (12-78) U/L Alkaline Phosphatase 85 (45-117) U/L Troponin I < 0.015 (0-0.045) ng/ml Total Protein 7.3 (6.4-8.2) gm/dl Albumin 3.1 L (3.4-5.0) gm/dl Globulin 4.2 H (2.5-4.0) gm/dl Albumin/Globulin Ratio 0.7 L (0.9-2) Procalcitonin (0-0.5) ng/ml TSH 0.674 (0.300-4.500) uIu/ml Urine Color Urine Appearance (Clear) Urine pH (4.5-7.5) Ur Specific [place] (1.000-1.030) Urine Protein (Negative) Urine Glucose (UA) (Negative) Urine Ketones (Negative) Urine Blood (Negative) Urine Nitrite (Negative) Urine Bilirubin (Negative) Urine Urobilinogen (Negative) Ur Leukocyte Esterase (Negative) Urine WBC (Auto) (0-5) /hpf Urine RBC (Auto) (0-4) /hpf U Hyaline Cast (Auto) (0-5) /lpf U Epithel Cells (Auto) (0-5) /lpf Urine Bacteria (Auto) (Negative) Lyme Disease IgG Ab Negative (Negative) Lyme Disease IgM Ab Negative (Negative) COVID-19 Eval Order SARS-CoV-2 (PCR) (Negative) 01/08/21 01/08/21 01/08/21 Range/Units 11:12 11:12 11:45 WBC (4.8-10.8) K/uL RBC (4.2-5.4) M/uL Hgb (12.0-16.0) g/dL Hct (37-47) % MCV (80-100) fL MCH (25-34) pg MCHC (32-36) g/dL RDW Std Deviation (36.4-46.3) fL RDW Coeff of Ori (11.5-14.5) % Plt Count (130-400) K/uL MPV (7.4-10.4) fL Immature Gran % (Auto) % Neut % (Auto) % Lymph % (Auto) % [place] % (Auto) % Eos % (Auto) % Baso % (Auto) % Neut # (Auto) (1.4-6.5) K/uL Lymph # (Auto) (1.2-3.4) K/uL [place] # (Auto) (0.11-0.59) K/uL Eos # (Auto) (0-0.5) K/uL Baso # (Auto) (0-0.2) K/uL Immature Gran # (Auto) (0.00-0.02) K/uL Sodium (136-145) mmol/L Potassium (3.5-5.1) mmol/L Chloride (98-107) mmol/L Carbon Dioxide (21-32) mmol/L Anion Gap (3-11) BUN (7-18) mg/dl Creatinine (0.6-1.2) mg/dl Est Cr Clr Drug Dosing ml/min Est GFR ( Amer) ml/min Est GFR (Non-Af Amer) ml/min BUN/Creatinine Ratio (10-20) Glucose (70-99) mg/dl Osmolality 273 L (280-300) mOsm/kg Lactate (0.4-2.0) mmol/L Calcium (8.5-10.1) mg/dl Magnesium (1.8-2.4) mg/dl Total Bilirubin (0.2-1) mg/dl AST (15-37) U/L ALT (12-78) U/L Alkaline Phosphatase (45-117) U/L Troponin I (0-0.045) ng/ml Total Protein (6.4-8.2) gm/dl Albumin (3.4-5.0) gm/dl Globulin (2.5-4.0) gm/dl Albumin/Globulin Ratio (0.9-2) Procalcitonin 1.15 H (0-0.5) ng/ml TSH (0.300-4.500) uIu/ml Urine Color Dark Yellow Urine Appearance Clear (Clear) Urine pH 5.5 (4.5-7.5) Ur Specific [place] 1.030 (1.000-1.030) Urine Protein 2+ H (Negative) Urine Glucose (UA) Negative (Negative) Urine Ketones 2+ H (Negative) Urine Blood 3+ H (Negative) Urine Nitrite Negative (Negative) Urine Bilirubin 1+ H (Negative) Urine Urobilinogen Negative (Negative) Ur Leukocyte Esterase Trace H (Negative) Urine WBC (Auto) 1-5 (0-5) /hpf Urine RBC (Auto) 10-30 H (0-4) /hpf U Hyaline Cast (Auto) 5-10 H (0-5) /lpf U Epithel Cells (Auto) >30 H (0-5) /lpf Urine Bacteria (Auto) Negative (Negative) Lyme Disease IgG Ab (Negative) Lyme Disease IgM Ab (Negative) COVID-19 Eval Order SARS-CoV-2 (PCR) (Negative) 01/08/21 01/08/21 01/08/21 Range/Units 11:45 11:45 12:18 WBC (4.8-10.8) K/uL RBC (4.2-5.4) M/uL Hgb (12.0-16.0) g/dL Hct (37-47) % MCV (80-100) fL MCH (25-34) pg MCHC (32-36) g/dL RDW Std Deviation (36.4-46.3) fL RDW Coeff of Ori (11.5-14.5) % Plt Count (130-400) K/uL MPV (7.4-10.4) fL Immature Gran % (Auto) % Neut % (Auto) % Lymph % (Auto) % [place] % (Auto) % Eos % (Auto) % Baso % (Auto) % Neut # (Auto) (1.4-6.5) K/uL Lymph # (Auto) (1.2-3.4) K/uL [place] # (Auto) (0.11-0.59) K/uL Eos # (Auto) (0-0.5) K/uL Baso # (Auto) (0-0.2) K/uL Immature Gran # (Auto) (0.00-0.02) K/uL Sodium (136-145) mmol/L Potassium (3.5-5.1) mmol/L Chloride (98-107) mmol/L Carbon Dioxide (21-32) mmol/L Anion Gap (3-11) BUN (7-18) mg/dl Creatinine (0.6-1.2) mg/dl Est Cr Clr Drug Dosing ml/min Est GFR ( Amer) ml/min Est GFR (Non-Af Amer) ml/min BUN/Creatinine Ratio (10-20) Glucose (70-99) mg/dl Osmolality (280-300) mOsm/kg Lactate 1.3 (0.4-2.0) mmol/L Calcium (8.5-10.1) mg/dl Magnesium (1.8-2.4) mg/dl Total Bilirubin (0.2-1) mg/dl AST (15-37) U/L ALT (12-78) U/L Alkaline Phosphatase (45-117) U/L Troponin I (0-0.045) ng/ml Total Protein (6.4-8.2) gm/dl Albumin (3.4-5.0) gm/dl Globulin (2.5-4.0) gm/dl Albumin/Globulin Ratio (0.9-2) Procalcitonin (0-0.5) ng/ml TSH (0.300-4.500) uIu/ml Urine Color Urine Appearance (Clear) Urine pH (4.5-7.5) Ur Specific [place] (1.000-1.030) Urine Protein (Negative) Urine Glucose (UA) (Negative) Urine Ketones (Negative) Urine Blood (Negative) Urine Nitrite (Negative) Urine Bilirubin (Negative) Urine Urobilinogen (Negative) Ur Leukocyte Esterase (Negative) Urine WBC (Auto) (0-5) /hpf Urine RBC (Auto) (0-4) /hpf U Hyaline Cast (Auto) (0-5) /lpf U Epithel Cells (Auto) (0-5) /lpf Urine Bacteria (Auto) (Negative) Lyme Disease IgG Ab (Negative) Lyme Disease IgM Ab (Negative) COVID-19 Eval Order Covid19 at [facility] SARS-CoV-2 (PCR) NEGATIVE (Negative) Administered Medications Lactated Ringer's (Lr) 1,000 mls @ 80 mls/hr IV .[id number] ONE Stop: 01/09/21 05:06 Last Admin: 01/08/21 17:41 Dose: 80 mls/hr Documented by: [id number] Magnesium Sulfate/Dextrose (Magnesium Sulfate / D5w) 1 gm in 100 mls @ 50 mls/hr IV Q2H RADHA Stop: 01/08/21 20:59 Last Admin: 01/08/21 18:04 Dose: 50 mls/hr Documented by: [id number] Discontinued Medications Acetaminophen (Acetaminophen 500 Mg Tab) 1,000 mg PO NOW STA Stop: 01/08/21 11:18 Last Admin: 01/08/21 11:42 Dose: 1,000 mg Documented by: [id number] Doxycycline Hyclate (Doxycycline Hyclate 100 Mg Cap) 100 mg PO NOW STA Stop: 01/08/21 12:42 Last Admin: 01/08/21 13:49 Dose: Not Given Documented by: [id number] Sodium Chloride (Nss 1000ml) 1,000 mls @ 999 mls/hr IV .Q1H1M RADHA Stop: 01/08/21 12:30 Last Infusion: 01/08/21 13:10 Dose: 0 mls/hr Documented by: [id number] Admin: 01/08/21 11:42 Dose: 999 mls/hr Documented by: [id number] Sodium Chloride (Nss 1000ml) 500 mls @ 999 mls/hr IV .Q31M ONE Stop: 01/08/21 12:36 Last Infusion: 01/08/21 13:50 Dose: 0 mls/hr Documented by: [id number] Admin: 01/08/21 12:56 Dose: 999 mls/hr Documented by: [id number] Clindamycin Phosphate 900 mg/ (Dextrose) 56 mls @ 112 mls/hr IV ONE ONE Stop: 01/08/21 13:10 Last Infusion: 01/08/21 14:32 Dose: 0 mls/hr Documented by: [id number] Admin: 01/08/21 13:47 Dose: 112 mls/hr Documented by: [id number] Doxycycline Hyclate 100 mg/ (Dextrose) 110 mls @ 50 mls/hr IV NOW STA Stop: 01/08/21 15:59 Last Infusion: 01/08/21 17:17 Dose: 0 mls/hr Documented by: [id number] Admin: 01/08/21 14:26 Dose: 50 mls/hr Documented by: [id number] Ketorolac Tromethamine (Ketorolac Tromethamine 15 Mg/Ml Vial) 15 mg IV NOW STA Stop: 01/08/21 11:18 Last Admin: 01/08/21 11:43 Dose: 15 mg Documented by: [id number] Magnesium Oxide (Magnesium Oxide 400 Mg Tab) 400 mg PO NOW STA Stop: 01/08/21 12:07 Last Admin: 01/08/21 12:56 Dose: 400 mg Documented by: [id number] Ondansetron HCl (Ondansetron Inj 2 Mg/Ml 2 Ml Vial) 4 mg IV NOW STA Stop: 01/08/21 11:18 Last Admin: 01/08/21 11:43 Dose: 4 mg Documented by: [id number] Imaging Data Radiologist's Impression: Chest X-Ray 01/08/21 11:17 XR chest 1V portable HISTORY: 65 years-old Female weakness acute weakness COMPARISON: CT abdomen and pelvis 06/16/2018 TECHNIQUE: Portable AP view of the chest FINDINGS: Cardiomediastinal and hilar silhouettes are within normal limits. 5 mm nodular opacity of the right midlung. No pneumothorax, pleural effusion or overt pulmonary edema.. Ill-defined right greater than left bibasilar opacities. IMPRESSION: 1. Ill-defined right greater than left bibasilar opacities are suspicious for pneumonia or aspiration pneumonitis. 2. Possible 5 mm nodule of the right midlung. ACT 112: Negative or not required by law. The above report was generated using voice recognition software. It may contain grammatical, syntax or spelling errors. Electronically signed by: Alberto Martinez M.D. 01/08/2021 12:[address] 01/08/21 13:39 CT sinus wo con HISTORY: 65 years-old Female sinus pain, dizziness, off balance acute dizziness with sinus pressure COMPARISON: None TECHNIQUE: Multiple axial CT images of the paranasal sinuses were obtained without the use of IV contrast. A dose lowering technique was used consistent with the principals of ALARA. FINDINGS: No acute intracranial abnormality identified. Prior bilateral lens repair. Soft tissues are unremarkable. No acute calvarial fracture. The mastoid air cells and middle ear cavities are clear. No acute facial bone fracture. Degenerative changes are noted within the imaged cervical spine. Degenerative changes of the temporal mandibular joints. Clear sphenoid sinuses. No significant mucosal thickening of the maxillary or frontal sinuses. There is minimal mucosal thickening of the residual ethmoid air cells. Prior partial ethmoidectomy with bilateral maxillary antrostomy. The middle nasal turbinates are surgically absent. The bilateral maxillary sinus outflow tracts, frontoethmoidal and sphenoethmoidal recesses are patent. No large Con cell. Normal francie amaya. Nasal septum is midline. IMPRESSION: 1. Postoperative changes of the paranasal sinuses as above. 2. Minimal mucosal thickening of the residual ethmoid air cells. 3. Clear sinus outflow tracts. ACT 112: Negative or not required by law. The above report was generated using voice recognition software. It may contain grammatical, syntax or spelling errors. Electronically signed by: Alberto Martinez M.D. 01/08/2021 2:42 PM Discharge Plan Visit Data Chief Complaint: Illness Stated Complaint: TIGHTNESS IN CHEST, VOMITING, FEVER, DIZZY ED Provider: Je Gorman Discharge Problem: Pneumonia, Flu-like symptoms, Acute dehydration, Acute hyponatremia Patient Disposition: Admitted As Inpatient Condition: Fair Discharge Instructions Interventions: ED Discharge Assessment Last Done: 01/08/21 16:25
[2021-01-08] MEDS ORDERED: SODIUM CHLORIDE 0.9% 1000ML 1,000 ML IV SCH (11:30)
[2021-01-08 11:40] LABS: Alanine Aminotransferase 37 U/L (12-78); Albumin Level 3.1 gm/dl (3.4-5.0); Aspartate Aminotransferase 37 U/L (15-37); BUN Creatinine Ratio 12.5 (10-20); Blood Urea Nitrogen 10 mg/dl (7-18); Calcium 8.7 mg/dl (8.5-10.1); Carbon Dioxide 23 mmol/L (21-32); Chloride 99 mmol/L (98-107); Creatinine Clr Calc Pharmacy 63.9 ml/min; Est GFR (Non-African American) 78.6 ml/min; Glucose 130 mg/dl (70-99); Magnesium 1.7 mg/dl (1.8-2.4); Potassium 3.7 mmol/L (3.5-5.1); Sodium 129 mmol/L (136-145)
[2021-01-08 11:51] LABS: Albumin Globulin Ratio 0.7 (0.9-2); Alkaline Phosphatase 85 U/L (45-117); Bilirubin,Total 0.4 mg/dl (0.2-1); Globulin 4.2 gm/dl (2.5-4.0); Thyroid Stimulating Hormone 0.674 uIu/ml (0.300-4.500); Total Protein 7.3 gm/dl (6.4-8.2); Troponin I < 0.015 ng/ml (0-0.045)
[2021-01-08 11:57] LABS: Appearance Urine Clear (Clear); Bacteria Urine Automated Negative (Negative); Blood Urine 3+ (Negative); Color Urine Dark Yellow; Epithelial Cell Urine Auto >30 /lpf (0-5); Glucose Urine UA Negative (Negative); Ketones Urine 2+ (Negative); Leukocyte Esterase Urine Trace (Negative); Nitrite Urine Negative (Negative); Protein Urine 2+ (Negative); Urobilinogen Urine Negative (Negative); pH Urine 5.5 (4.5-7.5)
[2021-01-08] MEDS ORDERED: MAGNESIUM OXIDE 400 MG TAB PO STA (12:06)
[2021-01-08] MEDS ORDERED: SODIUM CHLORIDE 0.9% 1000ML 500 ML IV ONE (12:06)
[2021-01-08 12:09] LABS: Lyme Ab IgG w/WB Rflx Negative (Negative); Lyme Ab IgM w/WB Rflx Negative (Negative)
--- NOTE | 2021-01-08 12:18 | Electrocardiogram Report ---
Test Reason : Blood Pressure : / mmHG Vent. Rate : 097 BPM Atrial Rate : 097 BPM P-R Int : 120 ms QRS Dur : 066 ms QT Int : 328 ms P-R-T Axes : 082 021 064 degrees QTc Int : 416 ms Poor data quality, interpretation may be adversely affected Normal sinus rhythm Normal ECG When compared with ECG of 07-NOV-2016 13:23, Vent. rate has increased BY 36 BPM Otherwise no significant change Confirmed by Chau Morgan ([id number]) on 01/08/2021 12:18:12 PM Referred By: Confirmed By:Chau Morgan
--- NOTE | 2021-01-08 12:21 | XRay Report ---
XR chest 1V portable HISTORY: 65 years-old Female weakness acute weakness COMPARISON: CT abdomen and pelvis 06/16/2018 TECHNIQUE: Portable AP view of the chest FINDINGS: Cardiomediastinal and hilar silhouettes are within normal limits. 5 mm nodular opacity of the right m idlung. No pneumothorax, pleural effusion or overt pulmonary edema.. Ill-defined right greater than l eft bibasilar opacities. IMPRESSION: 1. Ill-defined right greater than left bibasilar opacities are suspicious for pneumonia or aspiration pneumonitis. 2. Possible 5 mm nodule of the right midlung. ACT 112: Negative or not required by law. The above report was generated using voice recognition software. It may contain grammatical, syntax o r spelling errors. Electronically signed by: Alberto Martinez M.D. 01/08/2021 12:20 PM
[2021-01-08] MEDS ORDERED: DOXYCYCLINE HYCLATE 100 MG CAP PO STA (12:41)
[2021-01-08] MEDS ORDERED: CLINDAMYCIN 900 MG in DEXTROSE 5% 50 ML IV ONE (12:41)
[2021-01-08 12:53] LABS: Bilirubin Urine 1+ (Negative)
[2021-01-08] MEDS ORDERED: DOXYCYCLINE HYCLATE 100 MG in DEXTROSE 5% 100 ML IV STA (13:48)
[2021-01-08] MEDS ORDERED: ONDANSETRON INJ 2 MG/ML 2 ML VIAL IV PRN (13:52)
--- NOTE | 2021-01-08 14:04 | History & Physical Report ---
Date of Service January 08, 2021 Assessment & Plan (1) Sinus infection: Plan: Pain with palpation to sinuses as well as swelling around frontal and maxillary sinuses - Continue with Doxycycline- IV with patient nausea to decrease change of esophagitis - Received 1 dose of Clindamycin in the EMD- broaden back out of clinical picute changes - CT scan of sinus - Likely causing PND and Nausea (2) Leukocytosis: Plan: As above - Anaplasmosis pending - Continue with Doxycycline - Follow CBC - normal lactate - PCT pending (3) Hyponatremia: Plan: Likely related to decrease in salt intake and free water intake over past 72 hours - Urine NA pending - Urine and serum OSMO pending - Spec grav 1.030 (4) Abnormal chest xray: Plan: Ill-defined right greater than left bibasilar opacities are suspicious for pneumonia or aspiration pneumonitis. Possible 5 mm nodule of the right midlung. - Concern for pneumonia/aspiration- Continue doxycycline - Not on oxygen therapy, no cough, no sputum production - Follow clinically - For her lung nodule- CT scan as outpatient and follow up with PCP History of Present Illness Primary Care Provider: Vidhya Gillespie, 65 YOF with past medical history of: HTN, depression, allergies, asthma; The patient has a surgical history of sinus surgery, SANTIAGO BSO, with fatty tissue removal. Patient presents to the EMD today for concerns of; fevers, chills, headache, ear pain, and feeling off balance, and chest tightness. Patient started to not feeling well on evening with onset of head ache. The headache was more like a pressure that was noted bilaterally above and below her eyes. This was associated with pain in her teeth as well as worsening with head movement and her ears feeling full. She endorses feeling chills and being sweaty as well as pain along the side of her neck. Patient also endorses waking up in the morning with sore throat that was scratchy in nature. Endorses having some fluid come out of ear the other day after using q-tip secondary to fullness. She also has some nausea with loss of appetite and has not been eating much food. She normally drinks 6-8 bottles of water a day, but will mix in some propel, but due to her stomach being upset she has just been drinking water, which likely explains her sodium level. She does spend allot of time outside gardening but denies any tick bites. In the EMD the patient had, routine blood work donoe, blood cultures, urine culture a CXR done with some concern of lower bilateral lobe opacity. She was given IV Clindamycin and changed Doxycycline to IV secondary to her nausea and vomiting. Patient will be observed overnight for control of nausea and vomiting, asses gerry sinuses with CT scan and follow her anaplasmosis smear and WBC count and biomarkers. Patient also has anaphylaxis to PCN. Patient has received her COVID vaccine and her COVID test is NEGATIVE on admission. Allergies Allergy/AdvReac Type Severity Reaction Status Date / Time bee venom protein (honey bee) Allergy Severe ANAPHYLAXIS Verified 01/08/21 13:15 Penicillins Allergy Severe ANAPHYLAXIS Verified 01/08/21 13:15 midazolam Allergy Intermediate HEADACHE Unverified 01/08/21 13:15 Sulfa (Sulfonamide Allergy Intermediate HIVES AND Verified 01/08/21 13:15 Antibiotics) RASH adhesive Allergy Unknown blisters Verified 01/08/21 13:15 cheese Allergy Unknown STREAKS Verified 01/08/21 13:15 MUSHROOMS AdvReac Intermediate nausea and Uncoded 01/08/21 13:15 vomiting Home Medications Medication Instructions Recorded Confirmed Type albuterol sulfate 90 mcg/actuation 1 - 2 puff INHALATION Q4H PRN #0 03/30/12 01/08/21 History aerosol inhaler (ProAir HFA) sertraline 100 mg tablet 100 mg PO BID #0 tab 03/30/12 01/08/21 History cetirizine 10 mg tablet (Zyrtec) 10 mg PO PM #0 tab 10/06/15 01/08/21 History lisinopril 20 mg tablet 20 mg PO HS #0 tab 10/06/15 01/08/21 History acetaminophen 500 mg capsule 1,000 mg PO Q6H PRN 01/08/21 01/08/21 History biotin 5,000 mcg sublingual tablet 5,000 mcg SUBLINGUAL HS 01/08/21 01/08/21 History buspirone 5 mg tablet 5 - 10 mg PO AMPM 01/08/21 01/08/21 History cholecalciferol (vitamin D3) 25 25 mcg PO QAM 01/08/21 01/08/21 History mcg (1,000 unit) tablet (Vitamin D3) Past Med/Surg History Medical History Asthma Depression GERD (gastroesophageal reflux disease) HTN (hypertension) Surgical History (Updated 01/08/21 @ 14:11 by JEAN-PAUL Anderson) S/P SANTIAGO-BSO Social History Smoking Status: Never smoker Preferred Language: Cameroonian Feels Safe at Home: Yes Review of Systems Review of Systems: REVIEW OF SYSTEMS: Constitutional: (+) fever, sweats or chills Eyes: (+) eye pressureNo diplopia, no worsening or blurred vision ENT: (+) ear pain/pressure normal hearing, no trouble swallowing Respiratory: (+) tightness, No cough, sputum, dyspnea at rest or on exertion Cardiovascular: No chest pain, or palpitations Abdomen: (+) nausea, vomiting, diarrhea, No constipation Musculoskeletal: (+) joint pain, calf pain, swelling Neurologic: No weakness, numbness/tingling, or balance problems Psychiatric: (+) anxiety or depression Skin: No rash or itch Physical Exam Physical Exam: PHYSICAL EXAM: General: awake, alert, no apparent distress Head: positive pain with light palpation to frontal, maxillary, and ethmoid sinuses, lymphadenopathy to anterior cervical chain, and submandibular, ENT: PERRL, EOMI, no pharyngeal exudate, mucous membranes moist, tympanic membranes with mild erythema and good cone of light, Neuro: AAO x 3, speech clear and appropriate, strength intact bilaterally 5/5, sensation intact and equal all extremities and dermatomes, no pronator drift, no nystagmus, no visual skew Chest: equal rise and fall of the chest, no accessory muscle use, no heaves or thrills, Clear to auscultation, no egophony, on room air, Cardiac: Regular rate and rhythm, telemetry reviewed, skin warm dry, cap refill <3 seconds, peripheral pulses +2 no JVD, no murmur, no JVD, no edema GI: NABS x 4 quadrants, soft, nontender to palpation, no rebound, guarding or tenderness : Spontaneously voiding, no pain, no CVA tenderness, Extremities: Normal inspection, no peripheral edema or erythema, calfs nontender to palpation Psych: Normal mood and affect Skin: no rash or erythema Results & Data Results & Data ([facility]) Vital Signs (Past 12 Hours) Vital Signs Temp Pulse Pulse Resp BP BP Pulse Ox 01/08/21 13:00 86 16 120/76 98 01/08/21 12:00 95 01/08/21 11:10 100 H 16 115/89 97 01/08/21 10:45 37.2 C 107 H 18 149/88 H 96 Laboratory Results Abnormal lab results 01/08/21 01/08/21 01/08/21 Range/Units 11:12 11:12 11:45 WBC 14.22 H (4.8-10.8) K/uL RBC 4.06 L (4.2-5.4) M/uL Hct 35.6 L (37-47) % Neut # (Auto) 13.23 H (1.4-6.5) K/uL Lymph # (Auto) 0.56 L (1.2-3.4) K/uL Sodium 129 L (136-145) mmol/L Glucose 130 H (70-99) mg/dl Magnesium 1.7 L (1.8-2.4) mg/dl Albumin 3.1 L (3.4-5.0) gm/dl Globulin 4.2 H (2.5-4.0) gm/dl Albumin/Globulin Ratio 0.7 L (0.9-2) Urine Protein 2+ H (Negative) Urine Ketones 2+ H (Negative) Urine Blood 3+ H (Negative) Urine Bilirubin 1+ H (Negative) Ur Leukocyte Esterase Trace H (Negative) Urine RBC (Auto) 10-30 H (0-4) /hpf U Hyaline Cast (Auto) 5-10 H (0-5) /lpf U Epithel Cells (Auto) >30 H (0-5) /lpf Diagnostic Findings Chest X-Ray 01/08/21 11:17 XR chest 1V portable HISTORY: 65 years-old Female weakness acute weakness COMPARISON: CT abdomen and pelvis 06/16/2018 TECHNIQUE: Portable AP view of the chest FINDINGS: Cardiomediastinal and hilar silhouettes are within normal limits. 5 mm nodular opacity of the right midlung. No pneumothorax, pleural effusion or overt pulmonary edema.. Ill-defined right greater than left bibasilar opacities. IMPRESSION: 1. Ill-defined right greater than left bibasilar opacities are suspicious for pneumonia or aspiration pneumonitis. 2. Possible 5 mm nodule of the right midlung. ACT 112: Negative or not required by law. The above report was generated using voice recognition software. It may contain grammatical, syntax or spelling errors. Electronically signed by: Alberto Martinez M.D. 01/08/2021 12:[address] 01/08/21 13:39 CT sinus wo con HISTORY: 65 years-old Female sinus pain, dizziness, off balance acute dizziness with sinus pressure COMPARISON: None TECHNIQUE: Multiple axial CT images of the paranasal sinuses were obtained without the use of IV contrast. A dose lowering technique was used consistent with the principals of LUCINDA. FINDINGS: No acute intracranial abnormality identified. Prior bilateral lens repair. Soft tissues are unremarkable. No acute calvarial fracture. The mastoid air cells and middle ear cavities are clear. No acute facial bone fracture. Degenerative changes are noted within the imaged cervical spine. Degenerative changes of the temporal mandibular joints. Clear sphenoid sinuses. No significant mucosal thickening of the maxillary or frontal sinuses. There is minimal mucosal thickening of the residual ethmoid air cells. Prior partial ethmoidectomy with bilateral maxillary antrostomy. The middle nasal turbinates are surgically absent. The bilateral maxillary sinus outflow tracts, frontoethmoidal and sphenoethmoidal recesses are patent. No large Con cell. Normal francie amaya. Nasal septum is midline. IMPRESSION: 1. Postoperative changes of the paranasal sinuses as above. 2. Minimal mucosal thickening of the residual ethmoid air cells. 3. Clear sinus outflow tracts. ACT 112: Negative or not required by law. The above report was generated using voice recognition software. It may contain grammatical, syntax or spelling errors. Electronically signed by: Alberto Martinez M.D. 01/08/2021 2:42 PM Medications Administered Discontinued Medications Acetaminophen (Acetaminophen 500 Mg Tab) 1,000 mg PO NOW STA Stop: 01/08/21 11:18 Last Admin: 01/08/21 11:42 Dose: 1,000 mg Documented by: [id number] Doxycycline Hyclate (Doxycycline Hyclate 100 Mg Cap) 100 mg PO NOW STA Stop: 01/08/21 12:42 Last Admin: 01/08/21 13:49 Dose: Not Given Documented by: [id number] Sodium Chloride (Nss 1000ml) 1,000 mls @ 999 mls/hr IV .Q1H1M RADHA Stop: 01/08/21 12:30 Last Infusion: 01/08/21 13:10 Dose: 0 mls/hr Documented by: [id number] Admin: 01/08/21 11:42 Dose: 999 mls/hr Documented by: [id number] Sodium Chloride (Nss 1000ml) 500 mls @ 999 mls/hr IV .Q31M ONE Stop: 01/08/21 12:36 Last Infusion: 01/08/21 13:50 Dose: 0 mls/hr Documented by: [id number] Admin: 01/08/21 12:56 Dose: 999 mls/hr Documented by: [id number] Clindamycin Phosphate 900 mg/ (Dextrose) 56 mls @ 112 mls/hr IV ONE ONE Stop: 01/08/21 13:10 Last Admin: 01/08/21 13:47 Dose: 112 mls/hr Documented by: [id number] Ketorolac Tromethamine (Ketorolac Tromethamine 15 Mg/Ml Vial) 15 mg IV NOW STA Stop: 01/08/21 11:18 Last Admin: 01/08/21 11:43 Dose: 15 mg Documented by: [id number] Magnesium Oxide (Magnesium Oxide 400 Mg Tab) 400 mg PO NOW STA Stop: 01/08/21 12:07 Last Admin: 01/08/21 12:56 Dose: 400 mg Documented by: [id number] Ondansetron HCl (Ondansetron Inj 2 Mg/Ml 2 Ml Vial) 4 mg IV NOW STA Stop: 01/08/21 11:18 Last Admin: 01/08/21 11:43 Dose: 4 mg Documented by: [id number] ECG Additional Comments: Normal sinus rhythm Normal ECG When compared with ECG of 07-NOV-2016 13:23, Vent. rate has increased BY 36 BPM Otherwise no significant change Confirmed by Chau Morgan ([id number]) on 01/08/2021 12:18:12 PM Code Status & VTE Plan Code Status CODE: DNR/DNI VTE: SCDs, ambulation Supervising Physician Co-Signing Physician Notes Patient seen and examined, chart reviewed, case discussed with Jonathan JEONG and I agree with the assessment and plan as above except as otherwise noted above. 65yo F who presents with headache, head pressure, sinus pain, post nasal drip, and chills. Exam as noted below, notably positive for pain on maxillary and frontal sinus percussion. General: A&Ox3. NAD. Cooperative. HEENT: Atraumatic, normocephalic. Pain on maxillary and frontal sinus percussion. Pulm: CTAB A&P. -wheezes, -rales, -rhonchi. Symmetrical chest rise. No increase work of breathing. No respiratory distress. Cardiac: RRR, -mrg. Radial pulses intact and symmetrical. Abdominal: Nontender, nondistended, soft. BS present. All labs and images reviewed A/P Acute Bacterial Sinusitis - Continue doxy 100mg BID monotherapy - CT-Sinus pending - Low suspicion for acute PNA, partially cross covered with abx abx - No signs of sepsis Hyponatremia - Trend daily - Decreased PO intake with high water intake Pulmonary Nodule - 5mm nodule, recommend outpatient followup PG Care Time/CCT Total # of Minutes Spent Total Time Spent with Patient: Total time spent is greater than 50% in coordination of care (as documented) at patient's floor/unit and/or counseling patient: Coding Level of Care Code INT OBSERVATION CARE 50M LVL 2 Diagnoses Sinus infection J32.9 Leukocytosis D72.829 Hyponatremia E87.1 Abnormal chest xray R93.89
--- NOTE | 2021-01-08 14:44 | CT Scan Report ---
CT sinus wo con HISTORY: 65 years-old Female sinus pain, dizziness, off balance acute dizziness with sinus pressure COMPARISON: None TECHNIQUE: Multiple axial CT images of the paranasal sinuses were obtained without the use of IV cont rast. A dose lowering technique was used consistent with the principals of LUCINDA. FINDINGS: No acute intracranial abnormality identified. Prior bilateral lens repair. Soft tissues are unremarka ble. No acute calvarial fracture. The mastoid air cells and middle ear cavities are clear. No acute f acial bone fracture. Degenerative changes are noted within the imaged cervical spine. Degenerative ch anges of the temporal mandibular joints. Clear sphenoid sinuses. No significant mucosal thickening of the maxillary or frontal sinuses. There is minimal mucosal thickening of the residual ethmoid air cells. Prior partial ethmoidectomy with brittanie ateral maxillary antrostomy. The middle nasal turbinates are surgically absent. The bilateral maxilla ry sinus outflow tracts, frontoethmoidal and sphenoethmoidal recesses are patent. No large Con abhijit l. Normal francie amaya. Nasal septum is midline. IMPRESSION: 1. Postoperative changes of the paranasal sinuses as above. 2. Minimal mucosal thickening of the residual ethmoid air cells. 3. Clear sinus outflow tracts. ACT 112: Negative or not required by law. The above report was generated using voice recognition software. It may contain grammatical, syntax o r spelling errors. Electronically signed by: Alberto Martinez M.D. 01/08/2021 2:42 PM
[2021-01-08] MEDS ORDERED: LACTATED RINGER'S 1,000 ML IV ONE (16:37)
[2021-01-08] MEDS ORDERED: busPIRone 5 MG TAB PO SCH (16:37)
[2021-01-08] MEDS ORDERED: ALBUTEROL HFA 8 GM INHALER INH PRN (16:37)
[2021-01-08] MEDS: MAGNESIUM SULFATE / D5W 1 GM/100 ML BAG IV SCH ×2 (18:04→19:53)
[2021-01-08] MEDS: lisinopril 20 MG TAB PO SCH (19:59)
[2021-01-08] MEDS: busPIRone 5 MG TAB PO SCH (19:59)
[2021-01-08] MEDS: CETIRIZINE HCL 10 MG TABLET PO SCH (19:59)
[2021-01-08] MEDS: SERTRALINE HCL 100 MG TABLET PO SCH (19:59)
[2021-01-08] MEDS: ACETAMINOPHEN 500 MG TAB PO PRN (20:03)
[2021-01-08] MEDS ORDERED: SODIUM CHLORIDE 0.9% 1000ML 1,000 ML IV ONE (22:18)
[2021-01-09 06:41] LABS: Hematocrit (blood only) 31.1 % (37-47); Hemoglobin 10.7 g/dL (12.0-16.0); Immature Granulocytes # (auto) 0.02 K/uL (0.00-0.02); Immature Granulocytes % (auto) 0.3 %; Lymphocytes # (auto) 0.56 K/uL (1.2-3.4); Lymphocytes % (auto) 8.4 %; Mean Corpuscular Hemoglobin 29.2 pg (25-34); Mean Corpuscular Hgb Conc 34.4 g/dL (32-36); Mean Platelet Volume 9.1 fL (7.4-10.4); Monocytes # (auto) 0.25 K/uL (0.11-0.59); Monocytes % (auto) 3.8 %; Neutrophils % (auto) 87.5 %; Platelet Count 227 K/uL (130-400); RDW Coefficient of Variation 13.6 % (11.5-14.5); RDW Standard Deviation 42.5 fL (36.4-46.3); Red Blood Count 3.66 M/uL (4.2-5.4); White Blood Count 6.63 K/uL (4.8-10.8)
[2021-01-09 07:15] LABS: BUN Creatinine Ratio 13.3 (10-20); Calcium 7.7 mg/dl (8.5-10.1); Creatinine Clr Calc Pharmacy 74.2 ml/min; Est GFR (African American) 106.4 ml/min; Est GFR (Non-African American) 91.8 ml/min; Magnesium 1.9 mg/dl (1.8-2.4); Potassium 3.4 mmol/L (3.5-5.1)
[2021-01-09] MEDS: CHOLECALCIFEROL 1,000 UNITS 25 MCG TAB PO SCH (07:33)
[2021-01-09] MEDS: ACETAMINOPHEN 500 MG TAB PO PRN ×3 (07:33→19:41)
[2021-01-09] MEDS: busPIRone 5 MG TAB PO SCH ×2 (07:33→20:02)
[2021-01-09] MEDS: SERTRALINE HCL 100 MG TABLET PO SCH ×2 (07:33→20:04)
[2021-01-09] MEDS: IBUPROFEN 600 MG TAB PO PRN ×2 (08:38→22:21)
[2021-01-09] MEDS: NSS + 20MEQ KCL 20 MEQ/1,000 ML BAG IV SCH ×2 (08:40→23:52)
[2021-01-09] MEDS: DOXYCYCLINE HYCLATE 100 MG in DEXTROSE 5% 100 ML IV SCH ×2 (08:40→19:43)
--- NOTE | 2021-01-09 15:45 | Hospitalist Progress Note ---
Date of Service January 09, 2021 Assessment & Plan (1) Sinus infection: Plan: Pain with palpation to sinuses as well as swelling around frontal and maxillary sinuses - no obvious infection on CT, just shows prior surgical changes continue Doxycycline and Levaquin fever this morning but it subsided (2) Fever: Plan: no fever since this morning continue Tylenol and Motrin Doxy and Levaquin (3) Acute dehydration: Plan: not eating/drinking enough start on NSS + 20mEq at 100cc/hr (4) Leukocytosis: Plan: As above - Anaplasmosis pending - Continue with Doxycycline, add Levaquin - WBC now normal - normal lactate - PCT 0.9 (5) Hyponatremia: Plan: Likely related to decrease in salt intake and free water intake over past 72 hours - give NSS check BMP in AM (6) Abnormal chest xray: Plan: Ill-defined right greater than left bibasilar opacities are suspicious for pneumonia or aspiration pneumonitis. Possible 5 mm nodule of the right midlung. - Concern for pneumonia/aspiration- Continue doxycycline, add Levaquin for better coverage - Not on oxygen therapy, no cough, no sputum production - Follow clinically - For her lung nodule- CT scan as outpatient and follow up with PCP (7) Flu-like symptoms: Plan: could be sinusitis, pneumonia, viral infection, tick born? continue Tylenol, Motrin for fever Doxy and Levaquin NSS + 20mEq of KCl today Admission and Anticipated Discharge Date Admission Date: January 08, 2021 Subjective patient was feeling terrible this morning, much better now after ibuprofen discussed possible pneumonia, sinusitis, tick born illness? discussed what antibiotics she can take, has tolerated Levaquin, will add that for better lung coverage admits to being outside but never saw a tick no GI symptoms, mild dyspnea, occasional cough with sputum Review of Systems Review of Systems: All systems reviewed & are unremarkable except as noted in Subjective Constitutional: + fever, + sweats, + fatigue and + weakness; no chills Respiratory: + cough and + dyspnea; no wheezing Cardiovascular: no chest pain, no palpitations and no edema Gastrointestinal: no abdominal pain, no nausea, no vomiting, no constipation and no diarrhea/loose stools Physical Exam Constitutional: well developed, well nourished, + ill appearing and comfortable; no acute distress Neck: trachea midline, no thyromegaly Respiratory: normal respiratory effort, lungs clear to auscultation Cardiovascular: RRR, no murmur, no edema Gastrointestinal (Abdomen): normal bowel sounds, soft, nontender, no hepatosplenomegaly Musculoskeletal: no cyanosis or clubbing, extremities motor strength 5/5 Skin: no rashes, warm and dry Neurologic: patellar DTR's 2+ bilat, sensation intact and PERRL, EOMI, accommodation nl, no face palsy, no dysarthria Psychiatric: A+Ox3, euthymic affect Results & Data Results & Data ([facility]) Vital Signs (Past 12 Hours) Vital Signs Temp Pulse Resp BP Pulse Ox 01/09/21 09:00 36.8 C 01/09/21 07:18 39.2 C H 100 H 16 97/59 L 92 Laboratory Results Laboratory Results - last 24 hr 01/08/21 01/08/21 01/08/21 11:12 19:40 19:40 WBC RBC Hgb Hct MCV MCH MCHC RDW Std Deviation RDW Coeff of Ori Plt Count MPV Immature Gran % (Auto) Neut % (Auto) Lymph % (Auto) [place] % (Auto) Eos % (Auto) Baso % (Auto) Neut # (Auto) Lymph # (Auto) [place] # (Auto) Eos # (Auto) Baso # (Auto) Immature Gran # (Auto) Sodium Potassium Chloride Carbon Dioxide Anion Gap BUN Creatinine Est Cr Clr Drug Dosing Est GFR ( Amer) Est GFR (Non-Af Amer) BUN/Creatinine Ratio Glucose Osmolality 273 L Calcium Magnesium Procalcitonin Urine Osmolality 305 L Ur Random Sodium < 5 Nasal Screen MRSA (PCR) 01/08/21 01/09/21 01/09/21 22:55 06:24 06:24 WBC 6.63 RBC 3.66 L Hgb 10.7 L Hct 31.1 L MCV 85.0 MCH 29.2 MCHC 34.4 RDW Std Deviation 42.5 RDW Coeff of Ori 13.6 Plt Count 227 MPV 9.1 Immature Gran % (Auto) 0.3 Neut % (Auto) 87.5 Lymph % (Auto) 8.4 [place] % (Auto) 3.8 Eos % (Auto) 0.0 Baso % (Auto) 0.0 Neut # (Auto) 5.80 Lymph # (Auto) 0.56 L [place] # (Auto) 0.25 Eos # (Auto) 0.00 Baso # (Auto) 0.00 Immature Gran # (Auto) 0.02 Sodium 131 L Potassium 3.4 L Chloride 103 Carbon Dioxide 21 Anion Gap 7.0 BUN 9 Creatinine 0.68 Est Cr Clr Drug Dosing 74.2 Est GFR ( Amer) 106.4 Est GFR (Non-Af Amer) 91.8 BUN/Creatinine Ratio 13.3 Glucose 115 H Osmolality Calcium 7.7 L Magnesium 1.9 Procalcitonin Urine Osmolality Ur Random Sodium Nasal Screen MRSA (PCR) Negative 01/09/21 06:24 WBC RBC Hgb Hct MCV MCH MCHC RDW Std Deviation RDW Coeff of Ori Plt Count MPV Immature Gran % (Auto) Neut % (Auto) Lymph % (Auto) [place] % (Auto) Eos % (Auto) Baso % (Auto) Neut # (Auto) Lymph # (Auto) [place] # (Auto) Eos # (Auto) Baso # (Auto) Immature Gran # (Auto) Sodium Potassium Chloride Carbon Dioxide Anion Gap BUN Creatinine Est Cr Clr Drug Dosing Est GFR ( Amer) Est GFR (Non-Af Amer) BUN/Creatinine Ratio Glucose Osmolality Calcium Magnesium Procalcitonin 0.91 H Urine Osmolality Ur Random Sodium Nasal Screen MRSA (PCR) Medications Administered Current Inpatient Medications Acetaminophen (Acetaminophen 500 Mg Tab) 1,000 mg PO Q6H PRN PRN Reason: Pain Stop: 02/07/21 16:36 Last Admin: 01/09/21 11:19 Dose: 1,000 mg Documented by: Albuterol (Albuterol Hfa 8 Gm Inhaler) 2 puffs INH Q4H PRN PRN Reason: sob/wheezing Stop: 02/07/21 16:36 Buspirone HCl (Buspirone 5 Mg Tab) 5 mg PO QAM RADHA Stop: 02/08/21 08:59 Last Admin: 01/09/21 07:33 Dose: 5 mg Documented by: Buspirone HCl (Buspirone 5 Mg Tab) 10 mg PO HS RADHA Stop: 02/07/21 20:59 Last Admin: 01/08/21 19:59 Dose: 10 mg Documented by: Cetirizine HCl (Cetirizine Hcl 10 Mg Tablet) 10 mg PO PM RADHA Stop: 02/07/21 20:59 Last Admin: 01/08/21 19:59 Dose: 10 mg Documented by: Doxycycline Hyclate 100 mg/ (Dextrose) 110 mls @ 50 mls/hr IV Q12H RADHA Stop: 01/19/21 07:59 Last Infusion: 01/09/21 10:57 Dose: Infused Documented by: Potassium Chloride/Sodium Chloride (Normal Saline W/20 Meq Kcl) 20 meq in 1,000 mls @ 100 mls/hr IV .Q10H RADHA Stop: 02/08/21 07:44 Last Admin: 01/09/21 08:40 Dose: 100 mls/hr Documented by: Levofloxacin/Dextrose (Levaquin/D5w) 750 mg in 150 mls @ 100 mls/hr IV Q24H RADHA Stop: 01/16/21 15:44 Ibuprofen (Ibuprofen 600 Mg Tab) 600 mg PO Q8H PRN PRN Reason: Fever Stop: 02/08/21 07:38 Last Admin: 01/09/21 08:38 Dose: 600 mg Documented by: Lisinopril (Lisinopril 20 Mg Tab) 20 mg PO HS RADHA Stop: 02/07/21 20:59 Last Admin: 01/08/21 19:59 Dose: 20 mg Documented by: Ondansetron HCl (Ondansetron Inj 2 Mg/Ml 2 Ml Vial) 4 mg IV Q6 PRN PRN Reason: nausea vomitting Stop: 02/07/21 13:51 Sertraline HCl (Sertraline Hcl 100 Mg Tablet) 100 mg PO BID RADHA Stop: 02/07/21 20:59 Last Admin: 01/09/21 07:33 Dose: 100 mg Documented by: Vitamin D (Cholecalciferol 1,000 Units 25 Mcg Tab) 1,000 units PO QAM RADHA Stop: 02/08/21 08:59 Last Admin: 01/09/21 07:33 Dose: 1,000 units Documented by: PG Care Time/CCT Total # of Minutes Spent Total Time Spent with Patient: Total time spent is greater than 50% in coordination of care (as documented) at patient's floor/unit and/or counseling patient: Coding Level of Care Code 18022 Subseq Hosp Care Lvl 3 Diagnoses Sinus infection J32.9 Leukocytosis D72.829 Hyponatremia E87.1 Abnormal chest xray R93.89 Flu-like symptoms R68.89 Acute dehydration E86.0 Fever R50.9
[2021-01-09] MEDS: levoFLOXacin/D5W 750 MG/150 ML BAG IV SCH (16:28)
[2021-01-09] MEDS: CETIRIZINE HCL 10 MG TABLET PO SCH (20:02)
[2021-01-09] MEDS: lisinopril 20 MG TAB PO SCH (20:03)
[2021-01-09] MEDS ORDERED: Nursing to Pharmacy Communication SCH (23:45)
[2021-01-10] MEDS: ACETAMINOPHEN 500 MG TAB PO PRN ×2 (06:34→13:38)
[2021-01-10 08:47] LABS: Basophils # (auto) 0.01 K/uL (0-0.2); Basophils % (auto) 0.2 %; Eosinophils # (auto) 0.02 K/uL (0-0.5); Eosinophils % (auto) 0.3 %; Hematocrit (blood only) 31.3 % (37-47); Hemoglobin 10.7 g/dL (12.0-16.0); Immature Granulocytes # (auto) 0.02 K/uL (0.00-0.02); Immature Granulocytes % (auto) 0.3 %; Lymphocytes # (auto) 0.54 K/uL (1.2-3.4); Lymphocytes % (auto) 8.9 %; Mean Corpuscular Hemoglobin 29.2 pg (25-34); Mean Corpuscular Hgb Conc 34.2 g/dL (32-36); Mean Corpuscular Volume 85.5 fL (80-100); Mean Platelet Volume 9.6 fL (7.4-10.4); Monocytes # (auto) 0.31 K/uL (0.11-0.59); Monocytes % (auto) 5.1 %; Neutrophils # (auto) 5.14 K/uL (1.4-6.5); Neutrophils % (auto) 85.2 %; Platelet Count 269 K/uL (130-400); RDW Standard Deviation 43.9 fL (36.4-46.3); Red Blood Count 3.66 M/uL (4.2-5.4); White Blood Count 6.04 K/uL (4.8-10.8)
[2021-01-10] MEDS: CHOLECALCIFEROL 1,000 UNITS 25 MCG TAB PO SCH (08:48)
[2021-01-10] MEDS: busPIRone 5 MG TAB PO SCH ×2 (08:48→21:21)
[2021-01-10] MEDS: SERTRALINE HCL 100 MG TABLET PO SCH ×2 (08:48→21:20)
[2021-01-10] MEDS: DOXYCYCLINE HYCLATE 100 MG in DEXTROSE 5% 100 ML IV SCH (08:49)
[2021-01-10 09:32] LABS: BUN Creatinine Ratio 14.8 (10-20); Calcium 8.2 mg/dl (8.5-10.1); Creatinine Clr Calc Pharmacy 109.7 ml/min; Est GFR (Non-African American) 104.4 ml/min; Magnesium 1.8 mg/dl (1.8-2.4); Potassium 3.9 mmol/L (3.5-5.1)
--- NOTE | 2021-01-10 10:57 | Hospitalist Progress Note ---
Date of Service January 10, 2021 Assessment & Plan (1) Sinus infection: Plan: Pain with palpation to sinuses as well as swelling around frontal and maxillary sinuses - no obvious infection on CT, just shows prior surgical changes continue Doxycycline (more for anaplasmosis coverage) and Levaquin no fevers today but still with sweats sinuses are "opening up" per patient, less pain likely d/c tomorrow (2) Fever: Plan: no fever for 24 hours continue Tylenol and Motrin Doxy and Levaquin (3) Acute dehydration: Plan: not eating/drinking enough started on NSS + 20mEq at 100cc/hr on 01/09 will stop fluids today as she is drinking better (4) Leukocytosis: Plan: As above - Anaplasmosis pending still today no growth on blood cultures at two days - Continue with Doxycycline and Levaquin - WBC now normal for two days - normal lactate - PCT 0.9 (5) Hyponatremia: Plan: Likely related to decrease in salt intake and free water intake over past 72 hours - give NSS Na up to 142 (6) Abnormal chest xray: Plan: Ill-defined right greater than left bibasilar opacities are suspicious for pneumonia or aspiration pneumonitis. Possible 5 mm nodule of the right midlung. - Concern for pneumonia/aspiration- Continue doxycycline, add Levaquin for better coverage - Not on oxygen therapy, minimal cough, no sputum production - Follow clinically - For her lung nodule- CT scan as outpatient and follow up with PCP likely has atypical pneumonia, developed from sinusitis continue on Levaquin and Doxy, if anaplasmosis comes back neg then stop Doxy (7) Flu-like symptoms: Plan: could be sinusitis, pneumonia, viral infection, tick born? continue Tylenol, Motrin for fever Doxy and Levaquin NSS + 20mEq of KCl, stop today Admission and Anticipated Discharge Date Admission Date: January 09, 2021 Subjective patient feeling a little better, still with sweats but no documented fevers coughing up a little more sputum, feels like her sinuses are opening up reviewed labs, WBC normal, Cr normal, no growth on blood cultures, anaplasmosis still not back eating fairly well, no diarrhea discussed likely going home tomorrow, she agreed with plan Review of Systems Review of Systems: All systems reviewed & are unremarkable except as noted in Subjective Physical Exam Constitutional: well developed, well nourished, + well hydrated and comfortable; no acute distress ENMT: Nose: + sinus tenderness Neck: trachea midline, no thyromegaly Respiratory: normal respiratory effort, lungs clear to auscultation Cardiovascular: RRR, no murmur, no edema Gastrointestinal (Abdomen): normal bowel sounds, soft, nontender, no hepatosplenomegaly Musculoskeletal: no cyanosis or clubbing, extremities motor strength 5/5 Skin: no rashes, warm and dry Neurologic: patellar DTR's 2+ bilat, sensation intact and PERRL, EOMI, accommodation nl, no face palsy, no dysarthria Psychiatric: A+Ox3, euthymic affect Results & Data Results & Data ([facility]) Vital Signs (Past 12 Hours) Vital Signs Temp Pulse Resp BP Pulse Ox 01/10/21 07:32 37.0 C 80 16 108/68 92 Laboratory Results Laboratory Results - last 24 hr 01/10/21 01/10/21 08:06 08:07 WBC 6.04 RBC 3.66 L Hgb 10.7 L Hct 31.3 L MCV 85.5 MCH 29.2 MCHC 34.2 RDW Std Deviation 43.9 RDW Coeff of Ori 14.0 Plt Count 269 MPV 9.6 Immature Gran % (Auto) 0.3 Neut % (Auto) 85.2 Lymph % (Auto) 8.9 [place] % (Auto) 5.1 Eos % (Auto) 0.3 Baso % (Auto) 0.2 Neut # (Auto) 5.14 Lymph # (Auto) 0.54 L [place] # (Auto) 0.31 Eos # (Auto) 0.02 Baso # (Auto) 0.01 Immature Gran # (Auto) 0.02 Sodium 142 D Potassium 3.9 Chloride 116 H Carbon Dioxide 21 Anion Gap 6.0 BUN 7 Creatinine 0.46 L Est Cr Clr Drug Dosing 109.7 Est GFR ( Amer) 121.0 Est GFR (Non-Af Amer) 104.4 BUN/Creatinine Ratio 14.8 Glucose 107 H Calcium 8.2 L Magnesium 1.8 Medications Administered Current Inpatient Medications Acetaminophen (Acetaminophen 500 Mg Tab) 1,000 mg PO Q6H PRN PRN Reason: Pain Stop: 02/07/21 16:36 Last Admin: 01/10/21 06:34 Dose: 1,000 mg Documented by: Albuterol (Albuterol Hfa 8 Gm Inhaler) 2 puffs INH Q4H PRN PRN Reason: sob/wheezing Stop: 02/07/21 16:36 Buspirone HCl (Buspirone 5 Mg Tab) 5 mg PO QAM [facility] Stop: 02/08/21 08:59 Last Admin: 01/10/21 08:48 Dose: 5 mg Documented by: Buspirone HCl (Buspirone 5 Mg Tab) 10 mg PO HS [facility] Stop: 02/07/21 20:59 Last Admin: 01/09/21 20:02 Dose: 10 mg Documented by: Cetirizine HCl (Cetirizine Hcl 10 Mg Tablet) 10 mg PO PM [facility] Stop: 02/07/21 20:59 Last Admin: 01/09/21 20:02 Dose: 10 mg Documented by: Doxycycline Hyclate 100 mg/ (Dextrose) 110 mls @ 50 mls/hr IV Q12H [facility] Stop: 01/19/21 07:59 Last Admin: 01/10/21 08:49 Dose: 50 mls/hr Documented by: Potassium Chloride/Sodium Chloride (Normal Saline W/20 Meq Kcl) 20 meq in 1,000 mls @ 100 mls/hr IV .Q10H [facility] Stop: 02/08/21 07:44 Last Admin: 01/09/21 23:52 Dose: 100 mls/hr Documented by: Levofloxacin/Dextrose (Levaquin/D5w) 750 mg in 150 mls @ 100 mls/hr IV Q24H [facility] Stop: 01/16/21 15:44 Last Infusion: 01/09/21 18:02 Dose: Infused Documented by: Ibuprofen (Ibuprofen 600 Mg Tab) 600 mg PO Q8H PRN PRN Reason: Fever Stop: 02/08/21 07:38 Last Admin: 01/09/21 22:21 Dose: 600 mg Documented by: Lisinopril (Lisinopril 20 Mg Tab) 20 mg PO [facility] Stop: 02/07/21 20:59 Last Admin: 01/09/21 20:03 Dose: 20 mg Documented by: Ondansetron HCl (Ondansetron Inj 2 Mg/Ml 2 Ml Vial) 4 mg IV Q6 PRN PRN Reason: nausea vomitting Stop: 02/07/21 13:51 Sertraline HCl (Sertraline Hcl 100 Mg Tablet) 100 mg PO BID [facility] Stop: 02/07/21 20:59 Last Admin: 01/10/21 08:48 Dose: 100 mg Documented by: Vitamin D (Cholecalciferol 1,000 Units 25 Mcg Tab) 1,000 units PO QAM [facility] Stop: 02/08/21 08:59 Last Admin: 01/10/21 08:48 Dose: 1,000 units Documented by: PG Care Time/CCT Total # of Minutes Spent Total Time Spent with Patient: Total time spent is greater than 50% in coordination of care (as documented) at patient's floor/unit and/or counseling patient: Coding Level of Care Code 58240 Subseq Hosp Care Lvl 3 Diagnoses Sinus infection J32.9 Fever R50.9 Acute dehydration E86.0 Leukocytosis D72.829 Hyponatremia E87.1 Abnormal chest xray R93.89 Flu-like symptoms R68.89
[2021-01-10] MEDS: NSS + 20MEQ KCL 20 MEQ/1,000 ML BAG IV SCH (11:13)
[2021-01-10] MEDS ORDERED: OPTIRAY 320 100ml IV ONE (15:18)
--- NOTE | 2021-01-10 15:35 | CT Scan Report ---
CT OF THE CHEST WITH IV CONTRAST CLINICAL HISTORY: recurrent fevers, sweats COMPARISON STUDY: No previous studies for comparison. TECHNIQUE: Following the IV administration of 94 mL of Optiray, CT of the thorax was performed from the thoracic inlet to the lung bases. Images are reviewed in the axial, sagittal, and coronal planes. IV contrast was administered without complication. A dose lowering technique was utilized adhering to the principles of ALARA. CT DOSE: FINDINGS: There is no axillary, supra clavicle or internal mammary lymphadenopathy seen. Few slightly prominent mediastinal lymph nodes are seen measuring up to 10 mm in short axis, likely r eactive. Thyroid: Visualized portion of thyroid gland shows 10 mm hypoattenuating lesion within left thyroid lobe. Possible edema of the distal esophageal wall. Thoracic aorta: The thoracic aorta is normal in course and caliber, noting standard 3-vessel arch tino pricilla. No aneurysm or dissection is seen. Pulmonary vasculature: Is normal in caliber. HEART: Heart is normal in size and configuration. Trace pericardial effusion is seen. Minimal coronar y calcifications are seen. Lungs and pleural spaces: Tracheobronchial tree is patent. There is large consolidative opacity within right lower lobe with ne ayanna complete opacification of the pulmonary parenchyma and preserved bronchial and vascular structur es coursing through infiltrative lesion. Small to moderate right pleural effusion also seen. Upper abdomen: Partially visualized upper abdominal viscera is within normal limits. Skeletal structures: Minimal multilevel degenerative changes of the spine. IMPRESSION: 1. Large consolidative lesion within the right lower lobe most likely representing lobar pneumonia. Small to moderate right pleural effusion. Short-term follow-up in 4-6 weeks is recommended to documen t resolution. Findings will be sent to patient's unit. 2. Trace pericardial effusion. 3. Small left thyroid nodule. Please correlate above-mentioned findings with clinical exam and prior history of thyroid abnormalities. Further evaluation with thyroid ultrasound the nonemergency basis might be considered if clinically indicated. 4. The rest of findings as above. ACT 112: Negative or not required by law. The above report was generated using voice recognition software. It may contain grammatical, syntax o r spelling errors. Electronically signed by: Lima Garrido DO 01/10/2021 3:33 PM
--- NOTE | 2021-01-10 15:35 | CT Scan Report ---
CT OF THE ABDOMEN AND PELVIS WITH CONTRAST CLINICAL HISTORY: recurrent fevers, sweats COMPARISON STUDY: CT of the abdomen and pelvis June 16, 2018. TECHNIQUE: Following IV administration of 94 mL of Optiray, axial images of the abdomen and pelvis we re obtained from the lung bases to the proximal femurs. Images were reviewed in the axial, sagittal, and coronal planes. IV contrast was administered without complication. Automated exposure control wa s utilized for the study. A dose lowering technique was utilized adhering to the principles of ALARA . CT DOSE: 455.98 mGy.cm FINDINGS: Please note that the chest CT will be reported separately. Extensive dense consolidation wi thin the right lower lobe is better depicted on that exam. There is a small right pleural effusion. T race left pleural effusion is present. Bilateral breast implants are partially imaged. No pneumatosis , free air or portal venous gas is present. There are no hepatic lesions. There is no biliary or panc reatic ductal dilatation. There is mild gallbladder distention without adjacent infiltration. The spl een, adrenal glands and right kidney are unremarkable. There is a 2 mm calculus within the upper pole of the left kidney. There is no hydronephrosis. There are no ureteral calculi. There is trace fluid within the pelvis. Note is made of colonic diverticulosis without evidence for acute diverticulitis. The caliber and wall thickness of small and large bowel are normal. Major vasculature is patent. Note is made of trabecular coarsening and sclerosis within the left iliac bone which was shown on prior e xam. This may reflect Paget's disease of the bone. IMPRESSION: 1. Extensive right lower lobe consolidation suggestive of pneumonia. Small right pleural effusion. Th darryl findings are better depicted on the chest CT. Please note that report for further description. 2. No bowel obstruction. No bowel wall thickening. 3. Trace fluid within the pelvis. 4. 2 mm left renal calculus. 5. Mild gallbladder distention. No pericholecystic infiltration. ACT 112: Negative or not required by law. Electronically signed by: Alonso Kline M.D. 01/10/2021 3:34 PM
--- NOTE | 2021-01-10 16:37 | Pulmonary Consultation ---
Date of Consultation January 10, 2021 Assessment & Plan (1) Pneumonia: Laterality: bilateral Lung location: lower lobe of lung Pneumonia type: due to unspecified organism Qualified Code(s): J18.9 - Pneumonia, unspecified organism (2) Pleural effusion: (3) Shortness of breath: (4) Intermittent asthma: CT chest 01/10/2021 personally reviewed: Biapical pleural scarring, dense consolidative process appreciated in the right lower lobe, small right-sided pleural effusion Minimal reactive mediastinal adenopathy --Sepsis secondary to right lower lobe pneumonia Dense consolidative process COVID-19 PCR negative Pro: 0.91 Nasal MRSA negative --Small pleural effusion Bedside ultrasound showed very small right-sided pleural effusion. No need for thoracentesis currently --Intermittent asthma Continue with as needed albuterol Plan: Continue with antibiotics levofloxacin, QTC 416 Would need treatment for at least 10 days Continue with incentive spirometry and flutter valve Follow sputum culture Follow mycoplasma IgM and Legionella We will need to keep a close eye on the right-sided infiltrate. If there is any clinical deterioration she might be chest tube and/or VATS Irrespective patient will need a repeat CT chest to be done 8 weeks from now. Please note the above document was generated using voice recognition software. It may contain grammatical, syntax or spelling errors.Any formal questions or concerns about the content, text or information contained within the body of this dictation should be directly addressed to the provider for clarification. History of Present Illness Attending Physician: Bright Mackey DO History of Present Illness 65-year-old female past medical history of hypertension, intermittent asthma only on as needed albuterol came to the hospital because of not feeling well for approximately 7-10 days Pulmonary consulted because of dense consolidative process of the right lower lobe At the time of examination patient stated that she is doing better after coming to the hospital She has been having issues with headache along with nausea and vomiting since last to 3 days. She denies any diarrhea at home. Denies any chest pain. She does complain of epigastric discomfort She started to cough only after coming to the hospital. Bringing up clear phlegm. Denies any recent travel history. History of COVID-19 back in June 2020 where she did not need any treatment. She did get vaccinated for COVID-19 in September 2020 Social history: Non-smoker, denies any illicit drug use. Pets: Has 2 cats at home. No birds or poultry nearby Allergies Allergy/AdvReac Type Severity Reaction Status Date / Time bee venom protein (honey bee) Allergy Severe ANAPHYLAXIS Verified 01/08/21 13:15 Penicillins Allergy Severe ANAPHYLAXIS Verified 01/08/21 13:15 adhesive Allergy Intermediate blisters Verified 01/09/21 15:48 midazolam Allergy Intermediate HEADACHE Unverified 01/08/21 13:15 Sulfa (Sulfonamide Allergy Intermediate HIVES AND Verified 01/08/21 13:15 Antibiotics) RASH mushroom AdvReac Intermediate nausea and Verified 01/09/21 15:48 vomiting Home Medications Medication Instructions Recorded Confirmed Type albuterol sulfate 90 mcg/actuation 1 - 2 puff INHALATION Q4H PRN #0 03/30/12 01/08/21 History aerosol inhaler (ProAir HFA) sertraline 100 mg tablet 100 mg PO BID #0 tab 03/30/12 01/08/21 History cetirizine 10 mg tablet (Zyrtec) 10 mg PO PM #0 tab 10/06/15 01/08/21 History lisinopril 20 mg tablet 20 mg PO HS #0 tab 10/06/15 01/08/21 History acetaminophen 500 mg capsule 1,000 mg PO Q6H PRN 01/08/21 01/08/21 History biotin 5,000 mcg sublingual tablet 5,000 mcg SUBLINGUAL HS 01/08/21 01/08/21 H istory buspirone 5 mg tablet 5 - 10 mg PO AMPM 01/08/21 01/08/21 History cholecalciferol (vitamin D3) 25 25 mcg PO QAM 01/08/21 01/08/21 History mcg (1,000 unit) tablet (Vitamin D3) Patient History Medical History Asthma Depression GERD (gastroesophageal reflux disease) HTN (hypertension) Surgical History (Updated 01/08/21 @ 14:11 by JEAN-PAUL Anderson) S/P SANTIAGO-BSO Social History Smoking Status: Never smoker Second Hand Exposure: Yes (30 years); Hx Alcohol Use: Yes Hx Substance Use: No Preferred Language: Lao Communication Ability: Effective 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 Beliefs That Will Affect Care: None Current Living Situation: Alone Feels Safe at Home: Yes Safety Concerns: Feels Safe At This Time Assistive Devices: None Review of Systems Review of Systems: All systems reviewed & are unremarkable except as noted in HPI & below Physical Exam Physical Exam: Constitutional: No acute distress HEENT: EOMI, PERRLA Respiratory system: Decreased air entry on the right side, no wheeze, no rhonchi, positive crackles right lower lobe CVS: S1-S2 positive, no murmurs or gallops Abdomen: Soft, nontender, nondistended, positive bowel sounds x4 Extremities: +2 pulses bilaterally radialis/ dorsalis pedis, no cyanosis, no ed tu Neuro: Awake alert oriented x3 Psych: Normal mood and affect G/U: No Mckeon Skin: no rashes, warm and dry Lymphatic: no cervical or axillary lymphadenopathy Results & Data Results & Data ([facility]) Vital Signs (Past 12 Hours) Vital Signs Temp Pulse Resp BP Pulse Ox 01/10/21 16:04 37.7 C H 81 16 124/77 94 01/10/21 13:33 38.8 C H 01/10/21 07:32 37.0 C 80 16 108/68 92 01/10/21 08:07 01/10/21 08:06 PG Care Time/CCT Total # of Minutes Spent Total Time Spent with Patient: Total time spent is greater than 50% in coordi nation of care (as documented) at patient's floor/unit and/or counseling patient: Coding Level of Care Code 48888 Initial Inpt Care Lvl 3 Diagnoses Pneumonia J18.9 Laterality: bilateral Lung location: lower lobe of lung Pneumonia type: due to unspecified organism Pleural effusion J90 Shortness of breath R06.02 Intermittent asthma J45.20
[2021-01-10] MEDS: levoFLOXacin/D5W 750 MG/150 ML BAG IV SCH (16:41)
--- NOTE | 2021-01-10 18:07 | Procedure Note ---
Procedure Note Date of Service January 10, 2021 Note Bedside Ultrasound: Left lung lung: Anterior-no B-lines, posterior no B-lines, no pleural effusion Right lung: Anterior-no B-lines, posterior-positive B-lines, dense air bronchograms, very minimal fluid in the posterior aspect. No clear loculations Please note the above document was generated using voice recognition software. It may contain grammatical, syntax or spelling errors.Any formal questions or concerns about the content, text or information contained within the body of this dictation should be directly addressed to the provider for clarification. Coding CPT Codes Pulmonary/Thoracic - Pulmonary and Thoracic: 25602 US, Chest, real time with imaging documentation ([id number]) [facility] Procedure Codes (Charges) Pulmonary/Thoracic Procedure 1: Pulmonary and Thoracic: 02017 US, Chest, real time with imaging documentation
[2021-01-10] MEDS ORDERED: KETOROLAC 30 MG/ML VIAL IV ONE (21:07)
[2021-01-10] MEDS ORDERED: KETOROLAC 30 MG/ML VIAL ONE (21:13)
[2021-01-10] MEDS: lisinopril 20 MG TAB PO SCH (21:21)
[2021-01-10] MEDS: CETIRIZINE HCL 10 MG TABLET PO SCH (21:21)
[2021-01-11] MEDS: ACETAMINOPHEN 500 MG TAB PO PRN ×3 (03:19→22:52)
[2021-01-11 06:47] LABS: Basophils # (auto) 0.03 K/uL (0-0.2); Basophils % (auto) 0.5 %; Eosinophils # (auto) 0.04 K/uL (0-0.5); Eosinophils % (auto) 0.7 %; Hematocrit (blood only) 31.9 % (37-47); Immature Granulocytes # (auto) 0.06 K/uL (0.00-0.02); Lymphocytes # (auto) 0.81 K/uL (1.2-3.4); Lymphocytes % (auto) 13.9 %; Mean Corpuscular Hemoglobin 29.5 pg (25-34); Mean Corpuscular Hgb Conc 34.5 g/dL (32-36); Mean Corpuscular Volume 85.5 fL (80-100); Mean Platelet Volume 9.7 fL (7.4-10.4); Monocytes # (auto) 0.68 K/uL (0.11-0.59); Monocytes % (auto) 11.7 %; Neutrophils # (auto) 4.19 K/uL (1.4-6.5); Neutrophils % (auto) 72.2 %; Platelet Count 311 K/uL (130-400); RDW Coefficient of Variation 14.1 % (11.5-14.5); RDW Standard Deviation 44.5 fL (36.4-46.3); Red Blood Count 3.73 M/uL (4.2-5.4); White Blood Count 5.81 K/uL (4.8-10.8)
[2021-01-11 07:18] LABS: BUN Creatinine Ratio 9.9 (10-20); Calcium 8.6 mg/dl (8.5-10.1); Creatinine Clr Calc Pharmacy 90.1 ml/min; Est GFR (African American) 113.4 ml/min; Est GFR (Non-African American) 97.8 ml/min; Magnesium 1.8 mg/dl (1.8-2.4); Potassium 3.5 mmol/L (3.5-5.1)
[2021-01-11] MEDS: CHOLECALCIFEROL 1,000 UNITS 25 MCG TAB PO SCH (08:30)
[2021-01-11] MEDS: SERTRALINE HCL 100 MG TABLET PO SCH ×2 (08:30→20:46)
[2021-01-11] MEDS: busPIRone 5 MG TAB PO SCH ×2 (08:30→20:44)
[2021-01-11] MEDS ORDERED: MoRPHine SULFATE 2 MG/ML CARP IV STA (08:44)
--- NOTE | 2021-01-11 14:25 | Pulmonology Progress Note ---
Date of Service January 11, 2021 Assessment & Plan (1) Pneumonia: Laterality: bilateral Lung location: lower lobe of lung Pneumonia type: due to unspecified organism Qualified Code(s): J18.9 - Pneumonia, unspecified organism (2) Pleural effusion: (3) Shortness of breath: (4) Intermittent asthma: Plan: CT chest 01/10/2021 personally reviewed: Biapical pleural scarring, dense consolidative process appreciated in the right lower lobe, small right-sided pleural effusion Minimal reactive mediastinal adenopathy --Sepsis secondary to right lower lobe pneumonia Dense consolidative process COVID-19 PCR negative Pro: 0.91 Nasal MRSA negative Patient did say that she has exposure to mold on and off. I doubt this pneumonia is secondary to a fungal infection. --Small pleural effusion Bedside ultrasound showed very small right-sided pleural effusion. No need for thoracentesis currently --Intermittent asthma Continue with as needed albuterol Plan: Continue with antibiotics levofloxacin, QTC 416 Would need treatment for at least 10 days Continue with incentive spirometry and flutter valve Follow sputum culture Follow mycoplasma IgM and Legionella Irrespective patient will need a repeat CT chest to be done 8 weeks from now. Please note the above document was generated using voice recognition software. It may contain grammatical, syntax or spelling errors.Any formal questions or concerns about the content, text or information contained within the body of this dictation should be directly addressed to the provider for clarification. Admission and Anticipated Discharge Date Admission Date: January 09, 2021 Subjective Patient seen and examined at bedside. No acute distress, no adverse events overnight. Patient still complains of headache. She does not complain of significant shortness of breath. She has been using the flutter valve. Bringing up clear phlegm. Denies any hemoptysis. No chest pain today. Therapeutic. Review of Systems Review of Systems: All systems reviewed & are unremarkable except as noted in Subjective Physical Exam Physical Exam: Constitutional: No acute distress HEENT: EOMI, PERRLA Respiratory system: Decreased air entry on the right side, no wheeze, no rhonchi, positive crackles right lower lobe CVS: S1-S2 positive, no murmurs or gallops Abdomen: Soft, nontender, nondistended, positive bowel sounds x4 Extremities: +2 pulses bilaterally radialis/ dorsalis pedis, no cyanosis, no edema Neuro: Awake alert oriented x3 Psych: Normal mood and affect G/U: No Mckeon Skin: no rashes, warm and dry Lymphatic: no cervical or axillary lymphadenopathy Results & Data Results & [facility]) Vital Signs (Past 12 Hours) Vital Signs Temp Pulse Resp BP Pulse Ox 01/11/21 07:37 37.2 C 74 16 133/77 96 01/11/21 06:00 01/11/21 06:00 PG Care Time/CCT Total # of Minutes Spent Total Time Spent with Patient: Total time spent is greater than 50% in coordination of care (as documented) at patient's floor/unit and/or counseling patient: Coding Level of Care Code 51205 Subseq Hosp Care Lvl 2 Diagnoses Pneumonia J18.9 Laterality: bilateral Lung location: lower lobe of lung Pneumonia type: due to unspecified organism Pleural effusion J90 Shortness of breath R06.02 Intermittent asthma J45.20
[2021-01-11] MEDS: levoFLOXacin/D5W 750 MG/150 ML BAG IV SCH (15:28)
[2021-01-11] MEDS ORDERED: RIZATRIPTAN BENZOATE 10 MG TAB PO ONE (15:45)
--- NOTE | 2021-01-11 16:43 | Hospitalist Progress Note ---
Date of Service January 11, 2021 Assessment & Plan (1) Pneumonia: Plan: CT chest with right lower lobe consolidation treat with Levaquin 750mg daily, needs 10 days of antibiotics still spiking fevers, can happen with consolidation flutter valve to improve sputum production Legionella and mycoplasma pending blood cultures negative (2) Pleural effusion: Plan: examined with US by Dr. Cummins not enough fluid to drain (3) Headache: Plan: suspect migraine as it responded favorably to Maxalt today repeat Maxalt tomorrow PRN, use Tylenol and Motrin (4) Sinus infection: Plan: Pain with palpation to sinuses as well as swelling around frontal and maxillary sinuses - no obvious infection on CT, just shows prior surgical changes continue Levaquin (5) Fever: Plan: intermittent fevers still happening, can happen with consolidation continue Tylenol and Motrin Levaquin (6) Acute dehydration: Plan: not eating/drinking enough started on NSS + 20mEq at 100cc/hr on 01/09 drinking better, fluids off (7) Leukocytosis: Plan: due to right lower lobe consolidation resolved (8) Hyponatremia: Plan: Likely related to decrease in salt intake and free water intake over past 72 hours - give NSS Na up to 142 (9) Abnormal chest xray: Plan: see above, due to pneumonia (10) Flu-like symptoms: Plan: due to pneumonia Admission and Anticipated Discharge Date Admission Date: January 09, 2021 Subjective patient with another fever today, 39.2, responding to Tylenol coughing but not much sputum coming up, even with flutter valve no dyspnea, no chest pain, no GI symptoms + headache still, wraps around head, asked about h/o migraine headaches, she said she used to get them years ago, they were different gave her Maxalt 10mg with excellent response, brought headache from 9 down to a 3 out of [address] Cummins, fevers expected, complete 10 days of antibiotics, hopeful that she won't develop empyema Review of Systems Review of Systems: All systems reviewed & are unremarkable except as noted in Subjective Physical Exam Constitutional: well developed, well nourished, + well hydrated and comfortable; no acute distress Neck: trachea midline, no thyromegaly Respiratory: normal respiratory effort, lungs clear to auscultation Cardiovascular: RRR, no murmur, no edema Gastrointestinal (Abdomen): normal bowel sounds, soft, nontender, no hepatosplenomegaly Musculoskeletal: no cyanosis or clubbing, extremities motor strength 5/5 Skin: no rashes, warm and dry Neurologic: patellar DTR's 2+ bilat, sensation intact and PERRL, EOMI, accommodation nl, no face palsy, no dysarthria Psychiatric: A+Ox3, euthymic affect Results & Data Results & Data ([facility]) Vital Signs (Past 12 Hours) Vital Signs Temp Pulse Resp BP BP Pulse Ox 01/11/21 15:37 39.2 C H 94 H 16 136/60 93 01/11/21 07:37 37.2 C 74 16 133/77 96 Laboratory Results Laboratory Results - last 24 hr 01/11/21 01/11/21 06:00 06:00 WBC 5.81 RBC 3.73 L Hgb 11.0 L Hct 31.9 L MCV 85.5 MCH 29.5 MCHC 34.5 RDW Std Deviation 44.5 RDW Coeff of Ori 14.1 Plt Count 311 MPV 9.7 Immature Gran % (Auto) 1.0 Neut % (Auto) 72.2 Lymph % (Auto) 13.9 [place] % (Auto) 11.7 Eos % (Auto) 0.7 Baso % (Auto) 0.5 Neut # (Auto) 4.19 Lymph # (Auto) 0.81 L [place] # (Auto) 0.68 H Eos # (Auto) 0.04 Baso # (Auto) 0.03 Immature Gran # (Auto) 0.06 H Sodium 139 Potassium 3.5 Chloride 110 H Carbon Dioxide 24 Anion Gap 5.0 BUN 6 L Creatinine 0.56 L Est Cr Clr Drug Dosing 90.1 Est GFR ( Amer) 113.4 Est GFR (Non-Af Amer) 97.8 BUN/Creatinine Ratio 9.9 L Glucose 103 H Calcium 8.6 Magnesium 1.8 Medications Administered Current Inpatient Medications Acetaminophen (Acetaminophen 500 Mg Tab) 1,000 mg PO Q6H PRN PRN Reason: Pain Stop: 02/07/21 16:36 Last Admin: 01/11/21 15:28 Dose: 1,000 mg Documented by: Albuterol (Albuterol Hfa 8 Gm Inhaler) 2 puffs INH Q4H PRN PRN Reason: sob/wheezing Stop: 02/07/21 16:36 Buspirone HCl (Buspirone 5 Mg Tab) 5 mg PO QAM [facility] Stop: 02/08/21 08:59 Last Admin: 01/11/21 08:30 Dose: 5 mg Documented by: Buspirone HCl (Buspirone 5 Mg Tab) 10 mg PO [facility] Stop: 02/07/21 20:59 Last Admin: 01/11/21 20:44 Dose: 10 mg Documented by: Cetirizine HCl (Cetirizine Hcl 10 Mg Tablet) 10 mg PO PM [facility] Stop: 02/07/21 20:59 Last Admin: 01/11/21 20:44 Dose: 10 mg Documented by: Levofloxacin/Dextrose (Levaquin/D5w) 750 mg in 150 mls @ 100 mls/hr IV Q24H [facility] Stop: 01/16/21 15:44 Last Infusion: 01/11/21 18:02 Dose: Infused Documented by: Dextrose/Sodium Chloride (D5w And 1/2nss) 1,000 mls @ 80 mls/hr IV .[id number] [facility] Stop: 02/11/21 00:00 Ibuprofen (Ibuprofen 600 Mg Tab) 600 mg PO Q8H PRN PRN Reason: Fever Stop: 02/08/21 07:38 Last Admin: 01/09/21 22:21 Dose: 600 mg Documented by: Lisinopril (Lisinopril 20 Mg Tab) 20 mg PO [facility] Stop: 02/07/21 20:59 Last Admin: 01/11/21 20:45 Dose: 20 mg Documented by: Ondansetron HCl (Ondansetron Inj 2 Mg/Ml 2 Ml Vial) 4 mg IV Q6 PRN PRN Reason: nausea vomitting Stop: 02/07/21 13:51 Sertraline HCl (Sertraline Hcl 100 Mg Tablet) 100 mg PO BID [facility] Stop: 02/07/21 20:59 Last Admin: 01/11/21 20:46 Dose: 100 mg Documented by: Tramadol HCl (Tramadol Hcl 50 Mg Tablet) 50 mg PO Q8H PRN PRN Reason: Headache Stop: 02/10/21 15:31 Vitamin D (Cholecalciferol 1,000 Units 25 Mcg Tab) 1,000 units PO [facility] Stop: 02/08/21 08:59 Last Admin: 01/11/21 08:30 Dose: 1,000 units Documented by: PG Care Time/CCT Total # of Minutes Spent Total Time Spent with Patient: Total time spent is greater than 50% in coordination of care (as documented) at patient's floor/unit and/or counseling patient: Coding Level of Care Code 53082 Subseq Hosp Care Lvl 3 Diagnoses Sinus infection J32.9 Fever R50.9 Acute dehydration E86.0 Leukocytosis D72.829 Hyponatremia E87.1 Abnormal chest xray R93.89 Flu-like symptoms R68.89 Pleural effusion J90 Pneumonia J18.9 Laterality: bilateral Lung location: lower lobe of lung Pneumonia type: due to unspecified organism Headache R51.9 (1) Pneumonia Laterality: bilateral Lung location: lower lobe of lung Pneumonia type: due to unspecified organism Qualified Code(s): J18.9 - Pneumonia, unspecified organism
[2021-01-11] MEDS: CETIRIZINE HCL 10 MG TABLET PO SCH (20:44)
[2021-01-11] MEDS: lisinopril 20 MG TAB PO SCH (20:45)
[2021-01-12] MEDS: D5W AND 1/2NSS 1,000 ML IV SCH ×2 (00:02→14:29)
--- NOTE | 2021-01-12 07:37 | XRay Report ---
XR chest 1V portable CLINICAL HISTORY: f/u COMPARISON STUDY: Chest radiograph January 08, 2021. Chest CT January 10, 2021. FINDINGS: There is no pneumothorax. Small right pleural effusion is noted. Extensive right lower lobe consolidation has slightly increased since prior CT. Significant increase since chest radiograph of January 08, 2021 is noted. There is a trace left pleural effusion. IMPRESSION: 1. Extensive right lower lobe pneumonia, slightly increased since prior CT. 2. Small right pleural effusion. 3. Trace left pleural effusion. ACT 112: Negative or not required by law. Electronically signed by: Alonso Kline M.D. 01/12/2021 7:35 AM
[2021-01-12] MEDS: SERTRALINE HCL 100 MG TABLET PO SCH ×2 (08:40→20:03)
[2021-01-12] MEDS: CHOLECALCIFEROL 1,000 UNITS 25 MCG TAB PO SCH (08:40)
[2021-01-12] MEDS: busPIRone 5 MG TAB PO SCH ×2 (08:40→20:02)
[2021-01-12] MEDS: RIZATRIPTAN BENZOATE 10 MG TAB PO PRN ×2 (08:41→20:54)
--- NOTE | 2021-01-12 10:38 | Hospitalist Progress Note ---
Date of Service January 12, 2021 Assessment & Plan (1) Pneumonia: Plan: CT chest with right lower lobe consolidation treat with Levaquin 750mg daily, needs 10 days of antibiotics, Levaquin was started 01/10/21 still spiking fevers, can happen with consolidation flutter valve to improve sputum production (not much phlegm) Legionella and mycoplasma pending blood cultures negative bronchoscopy by Dr. Cummins on 01/12 due to worsening density of infiltrate on CXR no complications follow up bronchial lavage cultures (bacterial, AFB, fungal), cytology (2) Pleural effusion: Plan: examined with US by Dr. Cummins not enough fluid to drain (3) Headache: Plan: suspect migraine as it responded favorably to Maxalt repeat Maxalt q12 PRN, use Tylenol and Motrin (4) Sinus infection: Plan: Pain with palpation to sinuses as well as swelling around frontal and maxillary sinuses - no obvious infection on CT, just shows prior surgical changes continue Levaquin (5) Fever: Plan: intermittent fevers still happening, can happen with consolidation continue Tylenol and Motrin Levaquin (6) Acute dehydration: Plan: not eating/drinking enough started on NSS + 20mEq at 100cc/hr on 01/09 drinking better, fluids off (7) Leukocytosis: Plan: due to right lower lobe consolidation resolved (8) Hyponatremia: Plan: Likely related to decrease in salt intake and free water intake over past 72 hours - give NSS Na up to 142 (9) Abnormal chest xray: Plan: see above, due to pneumonia (10) Flu-like symptoms: Plan: due to pneumonia Admission and Anticipated Discharge Date Admission Date: January 09, 2021 Subjective patient doing well this morning, breathing well, cough is still not productive of sputum no fever this morning, still had a 10/10 headache that was better with Maxalt underwent bronchoscopy with Dr. Cummins due to worsening infiltrate on chest x-ray no complications with the procedure, only noted finding was some grayish sputum in right bronchus bronchial lavage taken, sent for cytology, cultures and biopsies taken continue Levaquin and follow up results Review of Systems Review of Systems: All systems reviewed & are unremarkable except as noted in Subjective Constitutional: + fever, + sweats and + fatigue; no chills and no weakness Neurologic: + headache(s) Physical Exam Constitutional: well developed, well nourished, + well hydrated and comfortable; no acute distress ENMT: Nose: + sinus tenderness Neck: trachea midline, no thyromegaly Respiratory: normal respiratory effort, lungs clear to auscultation Cardiovascular: RRR, no murmur, no edema Gastrointestinal (Abdomen): normal bowel sounds, soft, nontender, no hepatosplenomegaly Musculoskeletal: no cyanosis or clubbing, extremities motor strength 5/5 Skin: no rashes, warm and dry Neurologic: patellar DTR's 2+ bilat, sensation intact and PERRL, EOMI, accommodation nl, no face palsy, no dysarthria Psychiatric: A+Ox3, euthymic affect Results & Data Results & Data ([facility]) Vital Signs (Past 12 Hours) Vital Signs Temp Pulse Resp BP Pulse Ox 01/12/21 06:27 37.2 C 86 17 134/85 95 01/12/21 00:00 37.4 C 01/11/21 22:49 37.7 C H 54 L 17 134/86 97 Laboratory Results Laboratory Results - last 24 hr 01/12/21 01/12/21 Unknown Unknown Fluid Neutrophils % 18 Fluid Lymphocytes % 37 Fluid Eosinophils % 0 Fl Monocyt/Macrophag % 45 Fluid Comment Legionella Source Pending Legionella Culture Pending Resp Virus Cult Rapid Pending Viral Specimen Source Pending Diagnostic Findings SINGLE VIEW CHEST CLINICAL HISTORY: Status post bronchoscopy FINDINGS: An AP, portable, upright chest radiograph is compared to study dated 01/12/2021. correlation is made with chest CT dated 01/10/2021. The cardiomediastinal silhouette is unremarkable. Dense right lower lobe consolidation with a small right pleural effusion is unchanged. Trace pleural fluid is seen in the left lung base. No pneumothorax is seen. The bony thorax is grossly intact. IMPRESSION: 1. No pneumothorax is identified post procedure. 2. Dense right basilar consolidation with associated right pleural effusion is unchanged from today's earlier examination. 3. Trace pleural fluid is seen at the left lung base. Medications Administered Current Inpatient Medications Acetaminophen (Acetaminophen 500 Mg Tab) 1,000 mg PO Q6H PRN PRN Reason: Pain Stop: 02/07/21 16:36 Last Admin: 01/11/21 22:52 Dose: 1,000 mg Documented by: Albuterol (Albuterol Hfa 8 Gm Inhaler) 2 puffs INH Q4H PRN PRN Reason: sob/wheezing Stop: 02/07/21 16:36 Buspirone HCl (Buspirone 5 Mg Tab) 5 mg PO QAM [facility] Stop: 02/08/21 08:59 Last Admin: 01/12/21 08:40 Dose: 5 mg Documented by: Buspirone HCl (Buspirone 5 Mg Tab) 10 mg PO HS [facility] Stop: 02/07/21 20:59 Last Admin: 01/11/21 20:44 Dose: 10 mg Documented by: Cetirizine HCl (Cetirizine Hcl 10 Mg Tablet) 10 mg PO PM [facility] Stop: 02/07/21 20:59 Last Admin: 01/11/21 20:44 Dose: 10 mg Documented by: Levofloxacin/Dextrose (Levaquin/D5w) 750 mg in 150 mls @ 100 mls/hr IV Q24H [facility] Stop: 01/16/21 15:44 Last Infusion: 01/11/21 18:02 Dose: Infused Documented by: Dextrose/Sodium Chloride (D5w And 1/2nss) 1,000 mls @ 80 mls/hr IV .[id number] [facility] Stop: 02/11/21 00:00 Last Admin: 01/12/21 00:02 Dose: 80 mls/hr Documented by: Ibuprofen (Ibuprofen 600 Mg Tab) 600 mg PO Q8H PRN PRN Reason: Fever Stop: 02/08/21 07:38 Last Admin: 01/09/21 22:21 Dose: 600 mg Documented by: Lisinopril (Lisinopril 20 Mg Tab) 20 mg PO HS [facility] Stop: 02/07/21 20:59 Last Admin: 01/11/21 20:45 Dose: 20 mg Documented by: Ondansetron HCl (Ondansetron Inj 2 Mg/Ml 2 Ml Vial) 4 mg IV Q6 PRN PRN Reason: nausea vomitting Stop: 02/07/21 13:51 Rizatriptan Benzoate (Rizatriptan Benzoate 10 Mg Tab) 10 mg PO Q12 PRN PRN Reason: Headache Stop: 02/11/21 07:43 Last Admin: 01/12/21 08:41 Dose: 10 mg Documented by: Sertraline HCl (Sertraline Hcl 100 Mg Tablet) 100 mg PO BID [facility] Stop: 02/07/21 20:59 Last Admin: 01/12/21 08:40 Dose: 100 mg Documented by: Tramadol HCl (Tramadol Hcl 50 Mg Tablet) 50 mg PO Q8H PRN PRN Reason: Headache Stop: 02/10/21 15:31 Vitamin D (Cholecalciferol 1,000 Units 25 Mcg Tab) 1,000 units PO QAM [facility] Stop: 02/08/21 08:59 Last Admin: 01/12/21 08:40 Dose: 1,000 units Documented by: PG Care Time/CCT Total # of Minutes Spent Total Time Spent with Patient: Total time spent is greater than 50% in coordination of care (as documented) at patient's floor/unit and/or counseling patient: Coding Level of Care Code 54162 Subseq Hosp Care Lvl 2 Diagnoses Pneumonia J18.9 Laterality: bilateral Lung location: lower lobe of lung Pneumonia type: due to unspecified organism Pleural effusion J90 Headache R51.9 Sinus infection J32.9 Fever R50.9 Acute dehydration E86.0 Leukocytosis D72.829 Hyponatremia E87.1 Abnormal chest xray R93.89 Flu-like symptoms R68.89 (1) Pneumonia Laterality: bilateral Lung location: lower lobe of lung Pneumonia type: due to unspecified organism Qualified Code(s): J18.9 - Pneumonia, unspecified organism
--- NOTE | 2021-01-12 10:39 | Pulmonology Progress Note ---
Date of Service January 12, 2021 Assessment & Plan (1) Pneumonia: Laterality: bilateral Lung location: lower lobe of lung Pneumonia type: due to unspecified organism Qualified Code(s): J18.9 - Pneumonia, unspecified organism (2) Pleural effusion: (3) Shortness of breath: (4) Intermittent asthma: Plan: CT chest 01/10/2021 personally reviewed: Biapical pleural scarring, dense consolidative process appreciated in the right lower lobe, small right-sided pleural effusion Minimal reactive mediastinal adenopathy --Sepsis secondary to right lower lobe pneumonia Dense consolidative process COVID-19 PCR negative Pro: 0.91 Nasal MRSA negative Patient did say that she has exposure to mold on and off. I doubt this pneumonia is secondary to a fungal infection. --Small pleural effusion Bedside ultrasound showed very small right-sided pleural effusion. No need for thoracentesis currently --Intermittent asthma Continue with as needed albuterol Plan: Chest x-ray from today shows worsening of the infiltrate on the right lower lobe Given the patient is still spiking fever of 39.2 even though being on antibiotics, I will do bronchoscopy due to BAL of the right lower lobe Risk and benefits of the procedure explained to the patient and that. She understands and agrees to go ahead with the procedure We will do a bedside ultrasound again to see if there is increased in the amount of pleural fluid. Continue with antibiotics levofloxacin, QTC 416 Would need treatment for at least 10 days Continue with incentive spirometry and flutter valve Follow sputum culture Follow mycoplasma IgM and Legionella Irrespective patient will need a repeat CT chest to be done 8 weeks from now. Please note the above document was generated using voice recognition software. It may contain grammatical, syntax or spelling errors.Any formal questions or concerns about the content, text or information contained within the body of this dictation should be directly addressed to the provider for clarification. Admission and Anticipated Discharge Date Admission Date: January 09, 2021 Subjective Patient seen and examined at bedside. No acute distress, no adverse events overnight. Patient still complains of headache. she states that it is all around the head Denies any nausea or vomiting. Good appetite. Has been using a flutter valve and bringing up clear phlegm. Denies any hemoptysis No chest pain, no sob breasts Review of Systems Review of Systems: All systems reviewed & are unremarkable except as noted in Subjective Physical Exam Physical Exam: Constitutional: No acute distress HEENT: EOMI, PERRLA Respiratory system: Decreased air entry on the right side, no wheeze, no rhonchi, positive crackles right lower lobe CVS: S1-S2 positive, no murmurs or gallops Abdomen: Soft, nontender, nondistended, positive bowel sounds x4 Extremities: +2 pulses bilaterally radialis/ dorsalis pedis, no cyanosis, no amanda ma Neuro: Awake alert oriented x3 Psych: Normal mood and affect G/U: No [place] Skin: no rashes, warm and dry Lymphatic: no cervical or axillary lymphadenopathy Results & Data Results & Data ([facility]) Vital Signs (Past 12 Hours) Vital Signs Temp Pulse Resp BP Pulse Ox 01/12/21 06:27 37.2 C 86 17 134/85 95 01/12/21 00:00 37.4 C 01/11/21 22:49 37.7 C H 54 L 17 134/86 97 01/11/21 06:00 01/11/21 06:00 PG Care Time/CCT Total # of Minutes Spent Total Time Spent with Patient: Total time spent is greater than 50% in coordin ation of care (as documented) at patient's floor/unit and/or counseling patient: Coding Level of Care Code 93032 Subseq Hosp Care Lvl 3 Diagnoses Pneumonia J18.9 Laterality: bilateral Lung location: lower lobe of lung Pneumonia type: due to unspecified organism Pleural effusion J90 Shortness of breath R06.02 Intermittent asthma J45.20
--- NOTE | 2021-01-12 10:58 | Pre Anesthesia Assessment ---
Date of Service January 12, 2021 Pre Sedation Assessment Vital Signs Temp Pulse Pulse Resp BP BP Pulse Ox 01/12/21 10:52 69 18 161/88 H 99 01/12/21 06:27 37.2 C 86 17 134/85 95 01/12/21 00:00 37.4 C 01/11/21 22:49 37.7 C H 54 L 17 134/86 97 01/11/21 15:37 39.2 C H 94 H 16 136/60 93 Pre-Sedation Airway Assessment Smoking Status: Never smoker Hx Sleep Apnea: No Short, Thick Neck: No Thyromental Distance: > or= 3.5 Finger Breadths Oral Cavity: + Dentures Mallampati Class: IV ASA: ASA2 NPO Status Date of Last Intake of Fluids: 01/12/21 Time of Last Intake of Fluids: 08:00 Last Oral Intake of Fluids Comment: sip with med Date of Last Intake of Solid Food: 01/12/21 Time of Last Intake of Solid Foods: 00:00 Procedure Planning Contraindications for Sedation: none Current Medications Reviewed: Yes Notes The planned sedation has been discussed with the patient. Informed Consent was obtained. I have identified the patient, determined the appropriateness of sedation and have assessed the patient immediately prior to the procedure. All medicine(s) and interventions are by my order.
[2021-01-12] MEDS: MIDAZOLAM HCL 5 MG/ML 1 ML VIAL ONE ×2 (11:08→12:07)
[2021-01-12] MEDS: fentaNYL citrate 100 MCG/2 ML VIAL ONE ×2 (11:10→12:07)
--- NOTE | 2021-01-12 11:16 | Procedure Note ---
Procedure Note: Bronchoscopy Procedure PREOPERATIVE DIAGNOSIS: Right lower lobe pneumonia POSTOPERATIVE DIAGNOSIS: Right lower lobe pneumonia PROCEDURE PERFORMED: Flexible fiberoptic bronchoscopy with BAL COMPLICATIONS: None. INDICATION: As above PROCEDURE: After obtaining an informed consent, the patient was brought to the Bronchoscopy Suite. The patient had appropriate oxygen, blood pressure, heart rate, and respiratory rate monitoring applied and monitored continuously throughout the procedure. Supplemental oxygen via nasal cannula as per nursing records was applied to the nasopharynx with adequate saturations achieved. Topical anesthesia with nebulized 1% lidocaine was achieved. Subsequent to this, the patient was premedicated with 2 mg of midazolam and 100 mcg of fentanyl. Upper Airway: The oropharynx and larynx were well visualized and showed mild erythema of the nasal mucosa The vocal cord had good motion without masses or lesions. Additional topical anesthesia with 1% lidocaine was applied to the trachea and liset. The trachea appeared normal. So the protocol was.The bronchoscope was then advanced through the liset, which was sharp. The scope was then advanced into the right main stem and each segment, subsegement in the right upper lobe, right middle lobe and right lower lobe were visualized. There was minimal amount of grayish-yellow secretion which was suctioned out. There were no other findings including evidence of mass, anatomic distortions, or hemorrhage. The bronchoscope was subsequently withdrawn and advanced into the left mainstem. Again, each segment and subsegment was well visualized. No specific masses or other lesions were identified throughout the tracheobronchial tree on the left. There were no secretions noted. The bronchoscope was then wedged in the right lower lobe anterior and lateral segment and bronchoalveolar lavage samples were obtained. 100 ml of saline was instilled and 45 ml of fluid was aspirated back.The bronchoscope was withdrawn and the area was suctioned clear. Patient did have friable mucosa especially in the right lower lobe. The bronchoscope was then withdrawn to the mainstem. The area was suctioned clear. The bronchoscope was then withdrawn. The patient tolerated the procedure well without evidence of desaturation or complications. Bronchoalveolar lavage samples were sent for cell count, Gram stain and bacterial culture, AFB culture and smear, fungal culture and smear and cytology. Transbronchial biopsies were sent for tissue culture (bacteria, AFB and fungal) and pathology. Recommendations: Follow-up chest x-ray Follow-up cytology and cultures
--- NOTE | 2021-01-12 11:18 | Post Anesthesia Assessment ---
Date of Service January 12, 2021 Post Sedation Assessment Vital Signs Temp Pulse Pulse Resp BP BP Pulse Ox 01/12/21 11:34 83 16 151/83 H 95 01/12/21 11:29 96 H 16 136/83 94 01/12/21 11:24 103 H 16 143/78 H 92 01/12/21 11:19 111 H 16 143/91 H 94 01/12/21 11:14 117 H 12 154/84 H 95 01/12/21 11:09 122 H 12 150/93 H 98 01/12/21 11:04 91 H 18 159/89 H 98 01/12/21 10:52 69 18 161/88 H 99 01/12/21 06:27 37.2 C 86 17 134/85 95 01/12/21 00:00 37.4 C 01/11/21 22:49 37.7 C H 54 L 17 134/86 97 01/11/21 15:37 39.2 C H 94 H 16 136/60 93 Recovery Score Activity: Moves 4 extremities Respiration: Deep Breath/Cough Circulation: +/-20% PreAnes Value Consciousness: Arouseable (by name) Discharge Sedation Level of Care: Fast Track Phase II Post Sedation Plan On clinical assessment, the patient appears to have tolerated the sedation without complications. Patient is recovering as anticipated. Patient will continue to be monitored by nursing and may be discharged when sedation discharge criteria are met per below protocol. Upon Completions of procedure up to 15 minutes continue every 5 minute vital signs and the P.A.R. score; then discharge to a Phase I or Fast Track to Phase II per the following guidelines: * Discharge Patient to appropriate Phase II area if PAR is 8 or greater or return to pre- procedure baseline. The post - procedure orders will be as directed. * If PAR score is less than 8 or not return to pre-procedure baseline then patient will follow Phase I monitoring till PAR is reached for Phase II. The Phase I may be done in procedure room or may call to secure a Phase I area. * If naloxone or flumazenil are used for reversal, hold in Phase I for continued monitoring from when last reversal dose was given for a minimum of 60 minutes or longer pending the nurse and/or physician discretion of patient condition before discharge to Phase II. Please call the Sedation Physician to re-evaluate and complete post-note for discharge to Phase II area. Do NOT discharge from procedure sedation or Phase 1 until post- sedation evaluation note is complete by procedure /sedation MD Sedation Discharge Instructions to be given to the patient at discharge to home.
--- NOTE | 2021-01-12 11:48 | XRay Report ---
SINGLE VIEW CHEST CLINICAL HISTORY: Status post bronchoscopy FINDINGS: An AP, portable, upright chest radiograph is compared to study dated 01/12/2021. correlation is made with chest CT dated 01/10/2021. The cardiomediastinal silhouette is unremarkable. Dense right l ower lobe consolidation with a small right pleural effusion is unchanged. Trace pleural fluid is seen in the left lung base. No pneumothorax is seen. The bony thorax is grossly intact. IMPRESSION: 1. No pneumothorax is identified post procedure. 2. Dense right basilar consolidation with associated right pleural effusion is unchanged from today's earlier examination. 3. Trace pleural fluid is seen at the left lung base. ACT 112: Negative or not required by law. Electronically signed by: Je Silverman M.D. 01/12/2021 11:46 AM
[2021-01-12] MEDS: ACETAMINOPHEN 500 MG TAB PO PRN (12:14)
[2021-01-12 12:34] LABS: Eosinophil Body Fluid Man 0 %; Fluid Mono/Macrophage 45 %; Lymphocyte Body Fluid Man 37 %; Neutrophil Body Fluid Man 18 %
[2021-01-12] MEDS: levoFLOXacin/D5W 750 MG/150 ML BAG IV SCH (14:50)
[2021-01-12] MEDS: traMADol HCL 50 MG TABLET PO PRN (17:24)
[2021-01-12] MEDS: CETIRIZINE HCL 10 MG TABLET PO SCH (20:02)
[2021-01-12] MEDS: lisinopril 20 MG TAB PO SCH (20:03)
[2021-01-13] MEDS: D5W AND 1/2NSS 1,000 ML IV SCH (02:09)
[2021-01-13] MEDS: traMADol HCL 50 MG TABLET PO PRN (07:47)
[2021-01-13] MEDS: busPIRone 5 MG TAB PO SCH (08:43)
[2021-01-13] MEDS: CHOLECALCIFEROL 1,000 UNITS 25 MCG TAB PO SCH (08:43)
[2021-01-13] MEDS: SERTRALINE HCL 100 MG TABLET PO SCH (08:43)
--- NOTE | 2021-01-13 10:05 | Pulmonology Progress Note ---
Date of Service January 13, 2021 Assessment & Plan (1) Pneumonia: Laterality: bilateral Lung location: lower lobe of lung Pneumonia type: due to unspecified organism Qualified Code(s): J18.9 - Pneumonia, unspecified organism (2) Pleural effusion: (3) Shortness of breath: (4) Intermittent asthma: Plan: CT chest 01/10/2021 personally reviewed: Biapical pleural scarring, dense consolidative process appreciated in the right lower lobe, small right-sided pleural effusion Minimal reactive mediastinal adenopathy --Sepsis secondary to right lower lobe pneumonia Dense consolidative process COVID-19 PCR negative Pro: 0.91 Nasal MRSA negative Patient did say that she has exposure to mold on and off. I doubt this pneumonia is secondary to a fungal infection. S/p bronchoscopy 01/12/2021, BAL is lymphocytic, cytology negative Follow-up culture --Small pleural effusion Bedside ultrasound showed very small right-sided pleural effusion. No need for thoracentesis currently --Intermittent asthma Continue with as needed albuterol Plan: I did bedside ultrasound again yesterday 01/12/2021, patient still has minimal pleural effusion which does not need to be tapped, no loculations Patient is on room air. Would recommend to continue with levofloxacin for 10-14 days Repeat chest x-ray in 1 week after the antibiotics is done If there is any worsening in shortness of breath and/or chest pain she will need to come back to the ER Irrespective patient will need a repeat CT chest to be done 8 weeks from now. Continue with incentive spirometry as well as flutter valve at home Plan was explained to the patient who understands. Case discussed with Dr. Mackey Please note the above document was generated using voice recognition software. It may contain grammatical, syntax or spelling errors.Any formal questions or concerns about the content, text or information contained within the body of this dictation should be directly addressed to the provider for clarification. Admission and Anticipated Discharge Date Admission Date: January 09, 2021 Subjective Patient seen and examined at bedside. No acute distress, no adverse events overnight. Patient denies any chest pain, has been using flutter valve bringing up clear phlegm. Denies any hemoptysis. Has been afebrile in the last 12 hours. Does complain of mild headache but it is much better compared to yesterday. No dysuria, no diarrhea Type Review of Systems Review of Systems: All systems reviewed & are unremarkable except as noted in Subjective Physical Exam Physical Exam: Constitutional: No acute distress HEENT: EOMI, PERRLA Respiratory system: Decreased air entry on the right side, no wheeze, no rhonchi, positive crackles right lower lobe CVS: S1-S2 positive, no murmurs or gallops Abdomen: Soft, nontender, nondistended, positive bowel sounds x4 Extremities: +2 pulses bilaterally radialis/ dorsalis pedis, no cyanosis, no edema Neuro: Awake alert oriented x3 Psych: Normal mood and affect G/U: No Mckeon Skin: no rashes, warm and dry Lymphatic: no cervical or axillary lymphadenopathy Results & Data Results & Data ([facility]) Vital Signs (Past 12 Hours) Vital Signs Temp Pulse Resp BP BP Pulse Ox 01/13/21 07:50 37.0 C 68 16 134/77 95 01/12/21 22:44 37.1 C 76 16 145/84 H 94 01/11/21 06:00 01/11/21 06:00 PG Care Time/CCT Total # of Minutes Spent Total Time Spent with Patient: Total time spent is greater than 50% in coordination of care (as documented) at patient's floor/unit and/or counseling patient: Coding Level of Care Code 89456 Subseq Hosp Care Lvl 2 Diagnoses Pneumonia J18.9 Laterality: bilateral Lung location: lower lobe of lung Pneumonia type: due to unspecified organism Pleural effusion J90 Shortness of breath R06.02 Intermittent asthma J45.20
--- NOTE | 2021-01-13 13:54 | Discharge Summary ---
Date of Service January 13, 2021 Admission HPI Per Admitting Provider 65 YOF with past medical history of: HTN, depression, allergies, asthma; The patient has a surgical history of sinus surgery, SANTIAGO BSO, with fatty tissue removal. Patient presents to the EMD today for concerns of; fevers, chills, headache, ear pain, and feeling off balance, and chest tightness. Patient started to not feeling well on evening with onset of head ache. The headache was more like a pressure that was noted bilaterally above and below her eyes. This was associated with pain in her teeth as well as worsening with head movement and her ears feeling full. She endorses feeling chills and being sweaty as well as pain along the side of her neck. Patient also endorses waking up in the morning with sore throat that was scratchy in nature. Endorses having some fluid come out of ear the other day after using q-tip secondary to fullness. She also has some nausea with loss of appetite and has not been eating much food. She normally drinks 6-8 bottles of water a day, but will mix in some propel, but due to her stomach being upset she has just been drinking water, which likely explains her sodium level. She does spend allot of time outside gardening but denies any tick bites. In the EMD the patient had, routine blood work donoe, blood cultures, urine culture a CXR done with some concern of lower bilateral lobe opacity. She was given IV Clindamycin and changed Doxycycline to IV secondary to her nausea and vomiting. Patient will be observed overnight for control of nausea and vomiting, asses gerry sinuses with CT scan and follow her anaplasmosis smear and WBC count and biomarkers. Patient also has anaphylaxis to PCN. Patient has received her COVID vaccine and her COVID test is NEGATIVE on admission. Principal Diagnosis Right lower lobe pneumonia, lobar consolidation parapneumonic effusion Discharge Exam Constitutional well developed, well nourished, + well hydrated and comfortable; no acute distress ENMT Nose: + sinus tenderness Neck trachea midline, no thyromegaly Respiratory normal respiratory effort, lungs clear to auscultation Cardiovascular RRR, no murmur, no edema Gastrointestinal (Abdomen) normal bowel sounds, soft, nontender, no hepatosplenomegaly Musculoskeletal no cyanosis or clubbing, extremities motor strength 5/5 Skin no rashes, warm and dry Neurologic patellar DTR's 2+ bilat, sensation intact and PERRL, EOMI, accommodation nl, no face palsy, no dysarthria Psychiatric A+Ox3, euthymic affect Discharge Data Allergies Allergy/AdvReac Type Severity Reaction Status Date / Time bee venom protein (honey bee) Allergy Severe ANAPHYLAXIS Verified 01/08/21 13:15 Penicillins Allergy Severe ANAPHYLAXIS Verified 01/08/21 13:15 adhesive Allergy Intermediate blisters Verified 01/09/21 15:48 midazolam Allergy Intermediate HEADACHE Unverified 01/08/21 13:15 Sulfa (Sulfonamide Allergy Intermediate HIVES AND Verified 01/08/21 13:15 Antibiotics) RASH mushroom AdvReac Intermediate nausea and Verified 01/09/21 15:48 vomiting Consultations 01/08/21 13:15 ED Decision to Admit Stat 01/10/21 15:49 Consult Pulmonology Routine Procedures Performed Operation Date: 01/12/21 11:00 Actual Procedures p Bronchoscopy Radiology(Bilateral) - Katie Cummins MD Ordered Studies 01/08/21 13:39 CT sinus wo con Routine 01/10/21 14:23 CT abd pelvis IV con only Urgent CT chest diagnostic w con Urgent 01/10/21 16:38 US point of care ultrasound Routine 01/12/21 US point of care ultrasound Routine Hospital Course (1) Pneumonia: CT chest with right lower lobe consolidation treat with Levaquin 750mg daily, needs 10-14 days of antibiotics, will give 11 more days including today no fever today flutter valve to improve sputum production (not much phlegm) will continue to use flutter valve and incentive spirometer for next 1-2 weeks at home Legionella and mycoplasma pending blood cultures negative bronchoscopy by Dr. Cummins on 01/12 due to worsening density of infiltrate on CXR no complications follow up bronchial lavage cultures (bacterial, AFB, fungal), cytology -- these are still pending, follow up with PCP, Dr. Cummins told patient to return to the ED if she has worsening shortness of breath or worsening chest pain also... patient needs CXR one week after done with Levaquin patient needs CT chest in 8 weeks to follow up consolidation (2) Pleural effusion: examined with US by Dr. Cummins again on 01/12, small, not large enough to be drained instructed to come back to ED if worsening shortness of breath or chest pain, at risk for worsening effusion/empyema (3) Headache: suspect migraine as it responded favorably to Maxalt repeat Maxalt q12 PRN, use Tylenol and Motrin headache better today (4) Sinus infection: Pain with palpation to sinuses as well as swelling around frontal and maxillary sinuses - no obvious infection on CT, just shows prior surgical changes continue Levaquin for pneumonia this would not be acute sinusitis, just some chronic changes (5) Fever: intermittent fevers still happening, can happen with consolidation continue Tylenol and Motrin Levaquin (6) Acute dehydration: initially dehydrated treated with NSS + 20mEq at 100cc/hr on 01/09 drinking better, fluids off (7) Leukocytosis: due to right lower lobe consolidation resolved for several days (8) Hyponatremia: Likely related to decrease in salt intake and free water intake over past 72 hours - give NSS Na up to 142 (9) Abnormal chest xray: see above, due to pneumonia (10) Flu-like symptoms: due to pneumonia complete course of Levaquin CXR one week after Levaquin complete CT chest in 8 weeks follow up with PCP and with pulmonology Total Time Total Time Spent Total Time Spent (In Minutes): 35 Discharge Plan Discharge Items Patient Disposition: Home - Self-Care Reason For Visit: FATIGUE, BODY ACHES, SINUS INFECTION Discharge Diagnosis: Right lower lobe pneumonia, lobar consolidation Right pleural effusion, small Headache Condition on Discharge: Fair Goals: complete course of antibiotics, Levaquin chest x-ray one week after antibiotics completed CT chest in 8 weeks Activity: Resume your previous activity Driving/Machine Use: No limitations Weightbearing: Full weightbearing Non-emergency contact: Primary Care Provider Call non-emergency contact if: you have any medication questions, your symptoms worsen and you have a fever Follow-up/Referrals: Katie Cummins MD [Physician] - (8 weeks, should have CT chest prior to seeing Dr. Cummins or other pulm provider) Vidhya Gillespie DO [Primary Care Provider] - (one week) Diet: Regular Addtl Attending Provider Instructions: Medications: - LEVOFLOXACIN: antibiotic, take 750mg daily for 11 more days, can take in the morning - MAXALT: take as needed for severe headache, can repeat every 12 hours - ULTRAM: take only if headache is persisting despite Maxalt and Motrin and Tylenol - MUCINEX: take over the counter, 600mg twice a day for 10 days - TYLENOL: 650mg every 6 hours for pain or fever - IBUPROFEN: 600mg every 6 hours as needed for pain or fever use your flutter valve and incentive spirometer for next 10 days Right lower lobe pneumonia, lobar consolidation complete full course of levofloxacin bronchial lavage cultures are pending please get a chest x-ray one week after finished with levofloxacin you will need a CT of the chest in [address] Gillespie can order both of these image studies, follow up with her on 01/17/21 if you have worsening shortness of breath or worsening chest pain please return to the ED for evaluations fevers - can be normal to still have intermittent low fevers for a few more days, use the Tylenol and ibuprofen to help break them Pending Studies at Discharge: No Stand-Alone Forms: [employer], Smoking Cessation Medications and DC Order Prescriptions: New rizatriptan 10 mg Tablet 10 mg PO Q12 PRN (Reason: migraine headache) 5 Days Qty: 14 RF: 0 tramadol 50 mg Tablet 50 mg PO Q8H PRN (Reason: pain) 10 Days Qty: 20 RF: 0 levofloxacin 750 mg tablet 750 mg PO DAILY 11 Days Qty: 11 RF: 0 ibuprofen 600 mg Tablet 600 mg PO Q8H PRN (Reason: fever or pain) 7 Days Qty: 60 RF: 0 guaifenesin [Mucinex] 600 mg Tablet Extended Release 12hr 600 mg PO Q12 10 Days Qty: 20 RF: 0 Continued sertraline 100 mg Tablet 100 mg PO BID Qty: 0 RF: 0 albuterol sulfate [ProAir HFA] 90 mcg/actuation Hfa Aerosol Inhaler 1 - 2 puff INHALATION Q4H PRN (Reason: sob/wheezing) Qty: 0 RF: 0 cetirizine [Zyrtec] 10 mg Tablet 10 mg PO PM Qty: 0 RF: 0 lisinopril 20 mg Tablet 20 mg PO HS Qty: 0 RF: 0 buspirone 5 mg tablet 5 - 10 mg PO AMPM RF: 0 acetaminophen [Tylenol Extra Strength] 500 mg Capsule 1,000 mg PO Q6H PRN (Reason: Pain) RF: 0 cholecalciferol (vitamin D3) [Vitamin D3] 25 mcg (1,000 unit) Tablet 25 mcg PO QAM RF: 0 biotin 5,000 mcg Tablet, Sublingual 5,000 mcg SUBLINGUAL HS RF: 0 Discharge Orders: Discharge Order (Routine); Ordered 01/13/21 Ordered By: Bright Mackey Admission Data Admit Date/Time: 01/09/21 16:13 Attending Provider: Bright Mackey Admit Provider: Jordan Diaz Primary Care Provider: Vidhya Gillespie Other Providers: Bright Mackey ; Katie Cummins Supervising Physician Co-Signing Physician Notes Patient seen and examined, chart reviewed, case discussed with Jonathan JEONG and I agree with the assessment and plan as above except as otherwise noted above. 65yo F who presents with headache, head pressure, sinus pain, post nasal drip, and chills. Exam as noted below, notably positive for pain on maxillary and frontal sinus percussion. General: A&Ox3. NAD. Cooperative. HEENT: Atraumatic, normocephalic. Pain on maxillary and frontal sinus percussion. Pulm: CTAB A&P. -wheezes, -rales, -rhonchi. Symmetrical chest rise. No increase work of breathing. No respiratory distress. Cardiac: RRR, -mrg. Radial pulses intact and symmetrical. Abdominal: Nontender, nondistended, soft. BS present. All labs and images reviewed A/P Acute Bacterial Sinusitis - Continue doxy 100mg BID monotherapy - CT-Sinus pending - Low suspicion for acute PNA, partially cross covered with abx abx - No signs of sepsis Hyponatremia - Trend daily - Decreased PO intake with high water intake Pulmonary Nodule - 5mm nodule, recommend outpatient followup Coding Level of Care Code D/C DAY MANAGEMENT >30 MINS Diagnoses Pneumonia J18.9 Laterality: bilateral Lung location: lower lobe of lung Pneumonia type: due to unspecified organism Pleural effusion J90 Headache R51.9 Sinus infection J32.9 Fever R50.9 Acute dehydration E86.0 Leukocytosis D72.829 Hyponatremia E87.1 Abnormal chest xray R93.89 Flu-like symptoms R68.89
[2021-01-13] MEDS ORDERED: guaiFENesin 600 MG TABCR PO SCH (21:00)
== END 2021-01-13 15:13 | disposition home or self-care (01) | DRG 194 ==
LOC: 3N 10:36 → ED 10:36 → SUATTDRO 13:54 → 3N 16:25